=== PATIENT | female | born 1940 | race Caucasian/White ===

== ENCOUNTER 2017-01-01 14:55 | Inpatient (IN) ==
[2017-01-01] MEDS ORDERED: SODIUM CHLORIDE 0.9% 1,000 ML IV STA (15:28)
--- NOTE | 2017-01-01 16:03 | CT Report ---
CT head/brain wo con Indication: Head pain Comparison: None Technique: Multiple axial tomographic images of the brain were obtained without the use of intravenous contrast. Findings: Midline structures are nondisplaced. There is no evidence of acute intracranial hemorrhage or hydrocephalus. Mild global volume loss present. Mild periventricular and subcortical hypoattenuation noted which is nonspecific but consistent with chronic microvascular ischemic change. Right parietal scalp hematoma. The visualized paranasal sinuses and bilateral mastoid air cells are essentially clear. IMPRESSION: No acute intracranial abnormality demonstrated. The CT exam was performed using one or more of the following dose reduction techniques: Automated exposure control, adjustment of the mA and/or kV according to patient size, or use of iterative reconstruction technique. PROCEDURE INTERPRETED AT [facility] DEPARTMENT OF RADIOLOGY Final Report Signed by: Dr Dmitri Ventura
--- NOTE | 2017-01-01 16:18 | XRay Report ---
History: Shortness of breath Date: 01/01/2017 Study: Chest x-ray AP portable Comparison exam: August 21, 2016 There is cardiomegaly. The mediastinal contour is unchanged. The pulmonary vasculature is upper normal. There is some increased patchy and hazy opacity overlying the right mid lung and left lung base which was not present on the previous study. There are some strandy changes in the right lung base which were present on the previous exam and could be chronic. There is no pleural effusion. Osseous structures are unchanged. Impression: Bilateral infiltrate compatible with pneumonia, superimposed upon chronic changes in the right lung base. PROCEDURE INTERPRETED AT [facility] DEPARTMENT OF RADIOLOGY Final Report Signed by: Dr. Melodie Guerrero
[2017-01-01 16:29] LABS: Basophils # 0.1 10*3/uL (0.0-0.2); Basophils % 0.3 % (0.0-0.8); Eosinophils # 0.5 10*3/uL (0.0-0.87); Eosinophils % 2.7 % (0.00-10.9); Hematocrit 39.8 VOL% (35.7-47.0); Hemoglobin 13.1 GM/DL (12.0-16.0); Immature Granulocytes % 0.6 %; Lymphocytes # 1.8 10*3/uL (1.4-4.0); Lymphocytes % 10.2 % (21.3-54.2); Mean Corpuscular HGB Conc 32.9 GM/DL (32-36); Mean Corpuscular Hemoglobin 29 PG (27-34); Mean Corpuscular Volume 86.5 FL (87-102); Mean Platelet Volume 8.8 FL (9.6-12.0); Monocytes % 5.8 % (1.7-12.7); Neutrophils # 13.9 10*3/uL (1.4-7.4); Neutrophils % 80.4 % (38.7-73.9); Platelet Count 428 T/CUMM (130-400); Red Cell Distribution Width 13.7 % (9.3-17.3); White Blood Count 17.3 T/CUMM (4-12)
[2017-01-01 16:40] LABS: Apearance,Urine Slightly Hazy (Clear); Bacteria,Urine Occasional /HPF (Few); Bilirubin,Urine Negative (Negative); Blood, Urine Negative (Negative); Glucose,Urine (UA) Negative (Negative); Ketones,Urine Negative (Negative); Mucus,Urine Occasional /LPF (Occasional); Nitrite,Urine Negative (Negative); Protein,Urine Negative; RBC,Urine 2 /HPF (0-4); Squamous Epithelial Cell,Urine Occasional /HPF (0-10); Urine Color Yellow (Yellow); Urine Specific Gravity 1.014 (1.001-1.035); Urine Urobilinogen < 2.0 EU/DL (0.2-1.0); WBC,Urine 7 /HPF (0-6)
[2017-01-01] MEDS ORDERED: LEVOFLOXACIN INJ 500 MG in PREMIX 1 EACH IV STA (16:49)
[2017-01-01 17:09] LABS: Bilirubin,Total 0.6 MG/DL (0.2-1.0); Calcium 8.6 MG/DL (8.5-10.1); Osmolality,Calculated 277.4 MOS/KG (273-304); Potassium 3.3 MMOL/L (3.5-5.1)
[2017-01-01] MEDS ORDERED: LEVOFLOXACIN INJ 100 ML IV ONE (17:18)
--- NOTE | 2017-01-01 17:38 | Emergency Department Note ---
IBert Kasabria, am scribing for, and in the presence of, Angel Osborne MD 15:32. Dylon Lowe Phillip K, MD, personally performed the services described in this documentation, ascribed by Selwyn Noel in my presence, and it is both accurate and complete 738 . Arrival - Arrival Chief Complaint: Fall Stated Complaint: pt fell and hit head ED Nursing Triage Note: PT C/O FALLING AND HITTING HEAD ON TILE FLOOR AT APPROX 1430. PT AND BOTH DENY LOC. PT FELL FROM STANDING POSITION. + NAUSEA. Mode of Arrival: Wheelchair Limitations: No Limitations Source: Patient, Significant other ( ) Time Seen by Provider: 01/01/17 15:17 - History of Present Illness HPI Narrative: This is a 76 y/o white female presenting to the ED with c/o falling and hitting her head on the floor at approximately 1400. Pt's states the pt " blacked out". Pt fell from the standing position. She has had diarrhea for the past 2 weeks. Initially after the fall, the pt had a knot on her head that has gone down in circumference. Pt states she has a lung condition that she does not know the name of. She has been coughing up blood for most of the day along with yellow sputum. Pt attempted surgery to have part of her lung removed but states she coded on the table and was unable to complete the surgery done by Dr. Arcenio Castro. She is seen by Dr. Dubon. She denies fever, chills, nausea, vomiting, diarrhea, abdominal pain, back pain, neck and shoulder pain, and lower extremity pain. Her PHMx is consistent with HTN in which she takes Hydrochlorothiazide, bronchitis, and bladder tack. Consistency: constant Severity: moderate Allergies/Adverse Reactions: Allergies Allergy/AdvReac Type Severity Reaction Status Date / Time nitrofurantoin Allergy Severe Swelling Verified 01/01/17 15:09 [From Furadantin] of Lip/Tongue/Throat Sulfa (Sulfonamide Allergy Severe BLISTER Verified 01/01/17 15:09 Antibiotics) Home Medications: Home Medications Medication Instructions Recorded Confirmed Type hydroCHLOROthiazide 25 mg PO DAILY 08/19/16 08/20/16 History [Hydrochlorothiazide] Aspirin Chew Tab 81 mg PO DAILY tablet 08/23/16 Rx Atorvastatin [Lipitor] 40 mg PO DAILY tablet 08/23/16 Rx Clopidogrel [Plavix] 75 mg PO DAILY #60 tablet 08/23/16 Rx Loperamide Cap [Imodium Cap] 2 mg PO Q4H PRN #10 capsule 08/23/16 Rx Selenium [Selenium Tab] 200 mcg PO DAILY tablet 08/23/16 Rx Amoxicillin/Potassium Clav 1 tablet PO BID 01/01/17 History [Amox-Clav 875-125 mg Tablet] Carvedilol [Carvedilol] 6.25 mg PO BID 01/01/17 History Codeine Phosphate/Guaifenesin 5 - 10 ml PO BEDTIME 01/01/17 History [Guaifenesin-Codeine Syrup] predniSONE TAB [PredniSONE] See Taper PO DAILY 01/01/17 History Review of System - Review of System 12 point system: reviewed and no additional remarkable complaints except as stated - Review of System Constitutional: Absent: chills, fever, weakness Eyes: Absent: vision change Head/Ears/Nose/Throat: Present: other (headache with knot on occipital aspect of head ). Absent: nasal drainage Respiratory: Absent: cough Cardiovascular: Absent: chest pain, dyspnea on exertion Gastrointestinal: Absent: abdominal pain, nausea, vomiting, diarrhea Genitourinary female: Absent: dysuria Musculoskeletal: Absent: arm pain, back pain, leg pain, neck pain Skin: Absent: rash Neurological: Absent: headache, weakness, confusion, vertigo Psychiatric: Absent: anxiety Endocrine: Absent: fatigue Hematological/Lymphatic: Absent: easy bleeding Allergic/Immunologic: Absent: facial swelling Medical,Surgical,& Family Hx - Medical History Cardio: History of: Hypertension No history of: CAD, [place] Neurology: No history of: Seizures HEENT: History of: Eye Problem (CATARACT), Dental Problems (PARTIAL) Endocrine: No history of: Endocrine Cancer Respiratory: History of: Bronchitis (mycobacterium avium), Respiratory Problems Genitourinary: History of: Bladder Problem (BLADDER TACK) Comment Only: Genitourinary Cancer (INCONTIENCE) Gastrointestinal: History of: GI Problems (hiatal hernia) Musculoskeletal: History of: Musculoskeletal Problems No history of: Amputation Other: History of: Miscellaneous Medical Problems (night terrors at times) No history of: Anesthesia Reactions - Surgical History Thoracic Surgeries: Patient denies;: Organ Transplant, Lobectomy Neurologic Surgeries: Patient denies: Neurologic Surgery HEENT Surgeries: Surgical HX of: Eye Surgery (COS), Tonsilectomy & Adenoidectomy Abdominal Surgeries: Surgical HX of: Cholecystectomy, EGD Patient denies: Abdominal Surgery Reproductive Surgeries: Surgical HX of;: Hysterectomy - Family History Family History: Reports;: Family Cancer (breast(sisters2)), Family Diabetes (MOM ), Family Heart Disease (DAD), Family Hypertension (PARENTS BROTHER, sisters,) - Social History Smoking Status: Never smoker Frequency of Alcohol Use: None Type of Drug Use: None Exam Vital Signs: Vital Signs Temperature 97.6 F 01/01/17 15:16 Pulse Rate 62 01/01/17 15:36 Respiratory Rate 20 01/01/17 15:28 Blood Pressure 149/73 01/01/17 15:36 O2 Sat by Pulse Oximetry 97 01/01/17 15:28 - General General appearance: alert, in no apparent distress - Head Head exam: Present: normocephalic. Absent: atraumatic (2x2 cm hematoma to the temporal parietal aspect of head ), normal inspection - Eye Eye exam: Present: normal appearance, PERRL, EOMI - ENT ENT exam: Present: normal exam, normal oropharynx, mucous membranes moist, TM's normal bilaterally, normal external ear exam - Neck Neck exam: Present: normal inspection, full ROM, trachea midline. Absent: tenderness - Chest Chest inspection: Present: normal inspection, symmetric chest wall rise. Absent : tenderness - Respiratory Respiratory exam: Present: normal lung sounds bilaterally - Cardiovascular Cardiovascular exam: Present: regular rate, normal rhythm, normal heart sounds - Abdominal Exam Abdominal exam: Present: soft, normal bowel sounds. Absent: distention, tenderness - Extremities Exam Extremities exam: Present: normal inspection, full ROM, normal capillary refill. Absent: tenderness, pedal edema, calf tenderness - Back Exam Back exam: Present: normal inspection, full ROM. Absent: tenderness - Neurological Exam Neurological exam: Present: alert, oriented X3, CN II-XII intact, normal gait, reflexes normal. Absent: motor sensory deficit - Psychiatric Psychiatric exam: Present: normal affect, normal mood - Skin Skin exam: Present: warm, dry, intact, normal color. Absent: diaphoresis Results - Labs CBC & BMP: 01/01/17 16:21 Lab Results: I have reviewed the patients labs Labs: Laboratory Tests 01/01/17 01/01/1717 16:19 16:21 16:21 WBC 17.3 H RBC 4.60 Hgb 13.1 Hct 39.8 MCV 86.5 L MCH 29 MCHC 32.9 RDW 13.7 Plt Count 428 H MPV 8.8 L Neut % (Auto) 80.4 H Lymph % (Auto) 10.2 L [place] % (Auto) 5.8 Eos % (Auto) 2.7 Baso % (Auto) 0.3 Neut # (Auto) 13.9 H Lymph # (Auto) 1.8 [place] # (Auto) 1.0 H Eos # (Auto) 0.5 Baso # (Auto) 0.1 Immature Gran % 0.6 Nucleated RBC % 0.0 Immature Gran # 0.10 Nucleated RBCs # 0.00 Sodium 140 Potassium 3.3 L Chloride 99 Carbon Dioxide 32 Anion Gap 12.3 BUN 11 Creatinine 0.60 GFR Calculation 73 BUN/Creatinine Ratio 18.00 Glucose 105 Calculated Osmolality 277.4 Calcium 8.6 Total Bilirubin 0.60 AST 15 ALT 19 Alkaline Phosphatase 113 Total Protein 7.0 Albumin 3.0 L Globulin 4.0 H Albumin/Globulin Ratio 0.7 L Urine Color Yellow Urine Appearance Slightly hazy Urine pH 6.0 Ur Specific [place] 1.014 Urine Protein Negative Urine Glucose (UA) Negative Urine Ketones Negative Urine Blood Negative Urine Nitrate Negative Urine Bilirubin Negative Urine Urobilinogen < 2.0 H Urine Leukocytes Moderate H Urine RBC 2 Urine WBC 7 Ur Squamous Epith Cells Occasional Urine Bacteria Occasional Urine Mucus Occasional Ur Culture Indicated? Results to follow - Diagnostic Findings Procedure: Chest x-ray: report reviewed by me (Bilateral infiltrate compatible with pneumonia, superimposed upon chronic changes in the right lung base. ), CT : report reviewed by me (head; normal )
[2017-01-01] MEDS ORDERED: ONDANSETRON 4 MG/2 ML VIAL IV PRN (17:39)
[2017-01-01] MEDS: ACETAMINOPHEN 325 MG TABLET PO PRN (20:10)
[2017-01-01] MEDS: SODIUM CHLORIDE 0.9% 1,000 ML IV SCH (20:10)
[2017-01-01] MEDS: DOCUSATE SODIUM 100 MG CAPSULE PO SCH (20:12)
[2017-01-02] MEDS: SODIUM CHLORIDE 0.9% 1,000 ML IV SCH ×2 (03:15→12:56)
--- NOTE | 2017-01-02 07:06 | EKG Report ---
Stationary ECG Study [facility] ER Test Date: 01/01/2017 4:18:33 PM Pat Name: GOLDY CAREY Department: Room: 237 Gender: F Learning Support Aide: : 1940 Requested by: Angel Melchor Order Number: [id number] Reading MD: OLLIE SILVERMAN Intervals [place] Rate: 70 P: 45 NH: 149 QRS: 16 QRSD: 81 T: 38 QT: 391 QTc: 413 Interpretive Statements SINUS RHYTHM WITH MARKED SINUS ARRHYTHMIA LOW QRS VOLTAGE IN PRECORDIAL LEADS Electronically Signed On 01-02-17 21:50:13 CDT by OLLIE SILVERMAN [email or web address]
[2017-01-02] MEDS: DOCUSATE SODIUM 100 MG CAPSULE PO SCH ×2 (08:09→22:17)
[2017-01-02] MEDS: ACETAMINOPHEN 325 MG TABLET PO PRN ×2 (08:09→19:35)
--- NOTE | 2017-01-02 08:46 | Pulmonology Consult Note ---
Assessment and Plan (1) Syncope Status: Acute Assessment and plan: Being evaluated by primary service. Current Visit: Yes (2) Bronchiectasis with acute exacerbation Status: Acute Assessment and plan: It appears that she has an active infection. Likely to be a resistant 1. We will get sputum culture. Agree with Levaquin pending report. Patient is anxious to go home. If she goes would keep her on Levaquin by mouth. Current Visit: No (3) Status post insertion of drug eluting coronary artery stent Status: Acute Assessment and plan: Patient on Plavix. This may exacerbate the hemoptysis. Plan is for her to have the right middle lobectomy after she has been on Plavix for 6 months after the drug-eluting coronary stent. That would be in another month or so. Current Visit: No History of Present Illness Chief complaint: Syncope History of present illness: Ms. Hartmann is a 76 year old female has severe bronchiectasis involving right middle lobe. This is been evaluated by Dr. Dubon. It was recommended that she have a right middle lobectomy. Dr. Maxwell took her to surgery in August however the patient had cardiac events prior to having the surgery and had a coronary stent placed. Surgery was canceled. The plan is to do the surgery after 6 months of being on Plavix for the stent. That would be next month. The patient intermittently coughs up blood. She coughs some chronic purulent sputum due to her bronchiectasis. She had a flareup last week and was put on Augmentin on the 23 of December. Coughing up purulent sputum with blood streaking. Apparently has not been on cyclic antibiotics. She has a history of a previous atypical mycobacterial infection that was involving the right middle lobe. Home Medications Medication Instructions Recorded Confirmed Type hydroCHLOROthiazide 12.5 mg PO QAM 08/19/16 01/01/17 History [Hydrochlorothiazide] Aspirin Chew Tab 81 mg PO QAM 01/01/17 01/01/17 History Atorvastatin [Lipitor] 40 mg PO QAM 01/01/17 01/01/17 History Carvedilol [Carvedilol] 6.25 mg PO BID 01/01/17 01/01/17 History Clopidogrel [Plavix] 75 mg PO QAM 01/01/17 01/01/17 History Codeine Phosphate/Guaifenesin 5 - 10 ml PO BEDTIME 01/01/17 01/01/17 History [Guaifenesin-Codeine Syrup] Allergies Allergy/AdvReac Type Severity Reaction Status Date / Time nitrofurantoin Allergy Severe Swelling Verified 01/01/17 15:09 [From Furadantin] of Lip/Tongue/Throat Sulfa (Sulfonamide Allergy Severe BLISTER Verified 01/01/17 15:09 Antibiotics) 12 point system: reviewed and no additional remarkable complaints except as stated - Constitutional Constitutional: Present: fever(s), weight loss - Cardiovascular Cardiovascular: Present: chest pain with activity, dyspnea, dyspnea on exertion - Respiratory Respiratory: Present: dyspnea, hemoptysis, dyspnea on exertion, change in phlegm color - Neurological Neurological: Present: syncope Exam (Pulmonay) H&P - Constitutional Vitals: Period Temp Pulse Resp BP Sys/Morse Pulse Ox Last 24 Hr 97.4 F-99.4 F 56-73 18-28 82-162/47-80 91-98 Exam: Vital signs normal. Temperature 99.4. Pupils react to light. Throat clear. Neck supple no bruits. Chest shows rhonchi over the right middle lobe. Heart normal rate rhythm no murmurs. Abdomen soft no masses. Extremities no clubbing cyanosis edema. Calves nontender. Medical,Surgical,& Family Hx - Medical History Cardio: History of: Hypertension No history of: CAD, [place] Neurology: No history of: Seizures HEENT: History of: Eye Problem (CATARACT), Dental Problems (PARTIAL) Endocrine: No history of: Endocrine Cancer Respiratory: History of: Bronchitis (mycobacterium avium), Respiratory Problems Genitourinary: History of: Bladder Problem (BLADDER TACK) Comment Only: Genitourinary Cancer (INCONTIENCE) Gastrointestinal: History of: GI Problems (hiatal hernia) Musculoskeletal: History of: Musculoskeletal Problems No history of: Amputation Other: History of: Miscellaneous Medical Problems (night terrors at times) No history of: Anesthesia Reactions - Surgical History Thoracic Surgeries: Patient denies;: Organ Transplant, Lobectomy Neurologic Surgeries: Patient denies: Neurologic Surgery HEENT Surgeries: Surgical HX of: Eye Surgery (COS), Tonsilectomy & Adenoidectomy Abdominal Surgeries: Surgical HX of: Cholecystectomy, EGD Patient denies: Abdominal Surgery Reproductive Surgeries: Surgical HX of;: Hysterectomy - Family History Family History: Reports;: Family Cancer (breast(sisters2)), Family Diabetes (MOM ), Family Heart Disease (DAD), Family Hypertension (PARENTS BROTHER, sisters,) - Social History Smoking Status: Never smoker Frequency of Alcohol Use: None Type of Drug Use: None Results - Labs CBC & BMP: 01/01/17 16:21 01/01/17 16:21 Lab Results: I have reviewed the past 24 hour labs - Diagnostic Findings Procedure: Chest x-ray: image reviewed by me (Chronic right middle lobe infiltrate. Patchy infiltrate in the upper lobe on the right. Consistent with infected bronchiectasis with pneumonia)
[2017-01-02] MEDS ORDERED: hydroCHLOROthiazide 25 MG TABLET PO SCH (09:00)
--- NOTE | 2017-01-02 09:02 | Family Practice History&Phys ---
Assessment and Plan (1) Syncope Status: Acute Assessment and plan: 01/02/2017: Patient being evaluated by cardiology per consult. CT of the head was negative Current Visit: Yes (2) Bronchiectasis with acute exacerbation Status: Acute Assessment and plan: 01/02/2017:. Appreciate pulmonary consult on this difficult case. She is getting Levaquin antibiotic Current Visit: No (3) Hypokalemia Status: Acute Assessment and plan: 01/02/2017: We will supplement her potassium protocol Current Visit: No (4) Mycobacterium avium complex Status: Chronic Assessment and plan: 617:. She is getting antibiotics at this time and will get pulmonary to assist in direction with regards to this Current Visit: No History of Present Illness Chief complaint: Fall, bronchiectasis with hemoptysis History of present illness: Ms. Hartmann is a 76 year old female Known to me. She has a history of severe right lower lobe bronchiectasis and has had this for several years. It has gotten worse and was scheduled to have a right lower lobectomy this past August, as the patient was proceeding with surgery she went into sustained V. tach with a rate of 150s and the surgery was canceled. She subsequently was seen by cardiology and required a catheterization and it was noted that she had 90% right coronary artery lesion which was stented successfully. She is not having any chest pain since then and no episodes of V. tach. She has been on Plavix since that time. She came in yesterday to the emergency room after she sustained a fall, her stated that she "blacked out". She did hit her head but the CT of the head was negative. She does admit to recent diarrhea and is still coughing up a significant amount of yellowish/blood-tinged sputum (continuing this in the room now). She is very alert very oriented and otherwise is doing fairly well. She is not terribly short of breath and is not on oxygen at present. Her white count is up to 17.3 and she does have slightly low potassium. Is on Levaquin at present. I am going to get all pulmonary and cardiology consult. I am going to hold Plavix at this time and would ask for recommendations considering whether we need to continue this from cardiology or not Home Medications Medication Instructions Recorded Confirmed Type hydroCHLOROthiazide 12.5 mg PO QAM 08/19/16 01/01/17 History [Hydrochlorothiazide] Aspirin Chew Tab 81 mg PO QAM 01/01/17 01/01/17 History Atorvastatin [Lipitor] 40 mg PO QAM 01/01/17 01/01/17 History Carvedilol [Carvedilol] 6.25 mg PO BID 01/01/17 01/01/17 History Clopidogrel [Plavix] 75 mg PO QAM 01/01/17 01/01/17 History Codeine Phosphate/Guaifenesin 5 - 10 ml PO BEDTIME 01/01/17 01/01/17 History [Guaifenesin-Codeine Syrup] Allergies Allergy/AdvReac Type Severity Reaction Status Date / Time nitrofurantoin Allergy Severe Swelling Verified 01/01/17 15:09 [From Furadantin] of Lip/Tongue/Throat Sulfa (Sulfonamide Allergy Severe BLISTER Verified 01/01/17 15:09 Antibiotics) 12 point system: reviewed and no additional remarkable complaints except as stated (That mentioned above. In the history and physical exam as well as past medical history) Medical,Surgical,& Family Hx - Medical History Cardio: History of: Hypertension No history of: CAD, [place] Neurology: No history of: Seizures HEENT: History of: Eye Problem (CATARACT), Dental Problems (PARTIAL) Endocrine: No history of: Endocrine Cancer Respiratory: History of: Bronchitis (mycobacterium avium), Respiratory Problems Genitourinary: History of: Bladder Problem (BLADDER TACK) Comment Only: Genitourinary Cancer (INCONTIENCE) Gastrointestinal: History of: GI Problems (hiatal hernia) Musculoskeletal: History of: Musculoskeletal Problems No history of: Amputation Other: History of: Miscellaneous Medical Problems (night terrors at times) No history of: Anesthesia Reactions - Surgical History Thoracic Surgeries: Patient denies;: Organ Transplant, Lobectomy Neurologic Surgeries: Patient denies: Neurologic Surgery HEENT Surgeries: Surgical HX of: Eye Surgery (COS), Tonsilectomy & Adenoidectomy Abdominal Surgeries: Surgical HX of: Cholecystectomy, EGD Patient denies: Abdominal Surgery Reproductive Surgeries: Surgical HX of;: Hysterectomy - Family History Family History: Reports;: Family Cancer (breast(sisters2)), Family Diabetes (MOM ), Family Heart Disease (DAD), Family Hypertension (PARENTS BROTHER, sisters,) - Social History Smoking Status: Never smoker Frequency of Alcohol Use: None Type of Drug Use: None Exam - Constitutional Vitals: Period Temp Pulse Resp BP Sys/Morse Pulse Ox Last 24 Hr 97.4 F-99.4 F 56-73 18-28 82-162/47-80 91-98 Exam: Generally well-developed female she is alert and oriented. No acute distress but she does have a frequent and paroxysmal bronchospasms HEENT pupils are equal reactive to light extraocular movements are intact neck is supple trachea midline I do not appreciate cervical lymphadenopathy and there are no signs or symptoms of meningitis Cardiovascular rate is regular at this time no gallop or rub there is 1/6 systolic ejection murmur Lungs few basilar rhonchi particularly in the right. Not significantly short of breath at present Abdomen soft nondistended patient is eating reasonably well she admits she is having normal bowel and bladder function Extremities no clubbing cyanosis or edema Neurologically fully intact. No cranial nerve or peripheral nerve deficits Results - Labs CBC & BMP: 01/01/17 16:21 01/01/17 16:21
[2017-01-02] MEDS: CARVEDILOL 6.25 MG TABLET PO SCH ×2 (09:36→16:02)
[2017-01-02] MEDS: ASPIRIN CHEW 81 MG TABLET PO SCH (09:36)
[2017-01-02] MEDS: ATORVASTATIN 40 MG TABLET PO SCH (09:36)
[2017-01-02] MEDS: POTASSIUM CHLORIDE RIDER 10 MEQ in PREMIX 1 EACH IV PRN ×2 (09:38→12:57)
[2017-01-02 11:54] LABS: Calcium 7.7 MG/DL (8.5-10.1); Osmolality,Calculated 283.8 MOS/KG (273-304); Potassium 3.6 MMOL/L (3.5-5.1)
[2017-01-02] MEDS ORDERED: LEVOFLOXACIN INJ 750 MG in PREMIX 1 EACH IV SCH (14:00)
--- NOTE | 2017-01-02 14:00 | Cardiology Consult Note ---
I, Stacey Schaefer RN, am scribing for, and in the presence of, Osman Mishra MD 13:57. Assessment and Plan - Time spent with patient Time spent with patient: Greater than 30 minutes (Due to assessment, planning, documentation, medication review) (1) Bronchiectasis with acute exacerbation Status: Acute Assessment and plan: She is on antibiotics and steroids. Current Visit: No (2) Syncope Status: Acute Assessment and plan: The patient had a very brief loss/syncopal episode in the setting of pneumonia/ cough/hemoptysis. She did not have any symptoms of palpitations or other cardiac symptoms prior to the event. For now, I would manage her medically/ conservatively. We are monitoring her on telemetry. I would also like for her to get a 30 day event recorder when she is discharged home to make sure there is no transient cardiac arrhythmia. Current Visit: Yes (3) Cough with hemoptysis Status: Acute Assessment and plan: She has been on Plavix and baby aspirin since stent placed in August of this year. Plavix is currently on hold. I would like to resume it as soon as it is safe from a pulmonary standpoint. Current Visit: Yes (4) CAD (coronary artery disease) Status: Chronic Assessment and plan: Drug-eluting stent of the mid RCA August 2016. Patient has been on Plavix and baby aspirin since then. Current Visit: Yes Qualifiers: Coronary Disease-Associated Artery/Lesion type: [place] artery [place] vs. transplanted heart: [place] heart Associated angina: without angina Qualified Code(s): I25.10 - Atherosclerotic heart disease of [place] coronary artery without angina pectoris (5) Dyslipidemia Status: Chronic Assessment and plan: She is on Lipitor 40 mg daily. Current Visit: Yes (6) Hypokalemia Status: Acute Assessment and plan: She is on potassium protocol, we will continue to monitor. 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 Alvarez Ms. Hartmann is a 76 year old female who is followed by Dr. Alvarez with a history of ventricular tachycardia, CAD, dyslipidemia, hypertension, and bronchiectasis. In August she was admitted by Dr. Maxwell for elective right lung lobectomy related to her bronchiectasis. Upon induction of anesthesia, she was noted to have ventricular tachycardia and required synchronized cardioversion. She was seen by cardiology and had a heart cath with the following findings: Critical stenosis of the mid right coronary, large vessel-90% stenosis, focal, ANNABELLA grade III flow Mild to moderate disease in left coronary system Normal global/regional LV systolic function LVEDP is 10 mmHg, normal Aggrastat bolus and infusion-before the intervention Aspirin 81 mg [id number] the intervention Brilinta 180 mg p.o.-before the intervention Status post successful stenting of the mid right coronary [id number] stent, 3.0 x 12 mm Robert Tejada, after pre-dilating with a 2.75 x 8 mm NC trek Angio-Seal of the right femoral artery-successful She was placed on Plavix 75 mg daily as well as a baby aspirin daily. Because of antiplatelet therapy, she still has not had her lobectomy. An echo done in August showed ejection fraction of 70%. Other surgical history includes bladder sling, hysterectomy, cholecystectomy, and bilateral cataracts. She is unsure of her family history, but she does say that both parents and siblings have had heart attacks. She reports she is a lifetime non-smoker. Ms. Hartmann tells me that for 3 years she has had a terrible cough for the last week or so that is productive of thick yellow sputum which is sometimes blood- tinged. She says she was diagnosed with pneumonia a few days ago which was being treated as an outpatient. She was started on antibiotics and steroids by her manager services a few days ago. Yesterday however when she woke up she was even more tired than usual and generally felt bad. She reports that when she got out of bed and was walking to the kitchen she began to feel weak. She fell and may have briefly lost consciousness. She bumped her head on the floor. Her was there to assist her immediately. She denies any dizziness or any other symptoms before the syncopal episode other than just feeling bad. She did not have any palpitations, chest pain, or other symptoms associated with the spell. She tells me she had 1 of episode like this several months ago , but she did not come to the emergency department or see a doctor. Yesterday she presented to the emergency department for further evaluation. CT of her head was negative. Chest x-ray shows possible pneumonia. EKG with sinus rhythm heart rate of 70 with no evidence of ischemia. White count admission was 17.3. She denies having any chest pain. She reports having shortness of breath at times after a coughing spell. She reports having occasional nosebleeds, she is not sure if these began after she started Plavix. She thinks she had this even before. She denies any blood in her stool or urine. Currently she is seen resting in bed in no acute distress. She denies any chest pain, shortness of breath, palpitations, or dizziness. She is not coughing at this time, but she states she continues to cough up yellow sputum with blood in it. Her blood pressure was low on admission, 80s over 40s. She was given IV fluid and these numbers are better now. Potassium was 3.3, she was given potassium per protocol. Current Medications Acetaminophen (Tylenol Tab) 650 mg PO Q6H PRN PRN Reason: Fever > 100.4 or Headache Last Admin: 01/02/17 08:09 Dose: 650 mg Aspirin () 81 mg PO DAILY [facility] Last Admin: 01/02/17 09:36 Dose: 81 mg Atorvastatin Calcium (Lipitor) 40 mg PO DAILY [facility] Last Admin: 01/02/17 09:36 Dose: 40 mg Carvedilol (Coreg) 6.25 mg PO BID W/MEALS [facility] Last Admin: 01/02/17 09:36 Dose: 6.25 mg Docusate Sodium (Colace Cap) 100 mg PO BID [facility] Last Admin: 01/02/17 08:09 Dose: Not Given Hydrochlorothiazide () 12.5 mg PO DAILY [facility] Last Admin: 01/02/17 09:36 Dose: 12.5 mg Sodium Chloride (Ns) 1,000 mls @ 125 mls/hr IV .Q8H [facility] Last Admin: 01/02/17 03:15 Dose: 125 mls/hr Potassium Chloride 10 meq/ (Premix) 100 mls @ 50 mls/hr IV .PER PROTOCOL PRN; Protocol PRN Reason: Per Protocol Last Admin: 01/02/17 09:38 Dose: 50 mls/hr Ondansetron HCl (Zofran Inj) 4 mg IV Q6H PRN PRN Reason: Nausea/Vomiting CC: Jann Barragan DO - Home Medications and Allergies Home Medications: Home Medications Medication Instructions Recorded Confirmed Type hydroCHLOROthiazide 12.5 mg PO QAM 08/19/16 01/01/17 History [Hydrochlorothiazide] Aspirin Chew Tab 81 mg PO QAM 01/01/17 01/01/17 History Atorvastatin [Lipitor] 40 mg PO QAM 01/01/17 01/01/17 History Carvedilol [Carvedilol] 6.25 mg PO BID 01/01/17 01/01/17 History Clopidogrel [Plavix] 75 mg PO QAM 01/01/17 01/01/17 History Codeine Phosphate/Guaifenesin 5 - 10 ml PO BEDTIME 01/01/17 01/01/17 History [Guaifenesin-Codeine Syrup] Allergies/Adverse Reactions: Allergies Allergy/AdvReac Type Severity Reaction Status Date / Time nitrofurantoin Allergy Severe Swelling Verified 01/01/17 15:09 [From Furadantin] of Lip/Tongue/Throat Sulfa (Sulfonamide Allergy Severe BLISTER Verified 01/01/17 15:09 Antibiotics) - Constitutional Constitutional: Present: as per HPI - EENT Eyes: Present: blurry vision, requires corrective lense Ears: Absent: decreased hearing, ear pain Nose, mouth and throat: Present: epistaxis, headache(s). Absent: dysphagia, neck pain - Cardiovascular Cardiovascular: Present: dyspnea (Associated with cough). Absent: chest pain at rest, chest pain with activity, claudication, diaphoresis, edema, radiating jaw, neck or arm pain, lightheadedness, orthopnea, palpitations - Respiratory Respiratory: Present: cough, dyspnea (Associated with cough), hemoptysis. Absent: dyspnea on exertion, wheezing - Gastrointestinal Gastrointestinal: Present: vomiting (Associated with cough). Absent: abdominal pain, constipation, diarrhea, hematemesis, hematochezia, melena, nausea - Genitourinary Genitourinary: Absent: dysuria, hematuria - Musculoskeletal Musculoskeletal: Present: muscle weakness. Absent: limited range of motion - Neurological Neurological: Present: frequent falls, headache(s), syncope. Absent: abnormal gait, abnormal speech, confusion, dizziness - Psychiatric Psychiatric: Absent: anxiety, depression - Endocrine Endocrine: Present: fatigue - Hematologic/Lymphatic Hematologic/Lymphatic: Present: easy bruising Medical,Surgical,& Family Hx - Medical History Cardio: History of: CAD, Hypertension HEENT: History of: Eye Problem (CATARACT), Dental Problems (PARTIAL) Respiratory: History of: Bronchitis (mycobacterium avium), Respiratory Problems (Bronchiectasis) Genitourinary: History of: Bladder Problem (BLADDER TACK) Gastrointestinal: History of: GI Problems (hiatal hernia) Musculoskeletal: History of: Musculoskeletal Problems Other: History of: Miscellaneous Medical Problems (night terrors at times) - Surgical History Cardiac Surgeries: Sugical HX of: Cardiac Catheterization (August 2016) HEENT Surgeries: Surgical HX of: Eye Surgery (Bilateral cataract), Tonsilectomy & Adenoidectomy Abdominal Surgeries: Surgical HX of: Cholecystectomy, EGD Reproductive Surgeries: Surgical HX of;: Hysterectomy - Family History Family History: Reports;: Family Cancer (breast(sisters2)), Family Diabetes (MOM ), Family Heart Disease (DAD), Family Hypertension (PARENTS BROTHER, sisters,) - Social History Smoking Status: Never smoker Have you smoked in the last 12 months: No Frequency of Alcohol Use: Occasionally Type of Drug Use: None Marital Status: Lives With:: Spouse Functional capacity: independent ambulation Physical Examination Vital Signs Temp Pulse Resp BP Pulse Ox 97.6 F 56 L 18 82/47 95 01/01/17 15:06 01/01/17 15:06 01/01/17 15:06 01/01/17 15:06 01/01/17 15:06 General: Present: Appears Well, No Apparent Distress HEENT: Present: PERRL, Mucus Membranes Moist Neck: Present: Supple Neck, Midline Trachea, No Bruit Cardiac: Present: Reg Rate and Rhythm, No Murmur Lungs: Present: Scattered Rhonchi, No Wheezes. Absent: Oxygen Neuro: Absent: Resting Tremor, Essential Tremor Abdomen: Present: Soft, Active Bowel Sounds, Non-Tender Skin: Present: Other (Scattered chigger bites). Absent: Rash, Suspicious Lesions Gait: Present: Normal Gait Extremities: Present: Normal Gait, No Edema, Normal Upper Extr. Pulses, Normal Lower Extr. Pulses Result/EKG - Labs CBC & BMP: 01/01/17 16:21 01/02/17 11:07 Lab Results: I have reviewed the past 24 hour labs Labs: Laboratory Results - last 24 hr 01/01/17 01/01/17 01/01/17 16:19 16:21 16:21 WBC 17.3 H RBC 4.60 Hgb 13.1 Hct 39.8 MCV 86.5 L MCH 29 MCHC 32.9 RDW 13.7 Plt Count 428 H MPV 8.8 L Neut % (Auto) 80.4 H Lymph % (Auto) 10.2 L [place] % (Auto) 5.8 Eos % (Auto) 2.7 Baso % (Auto) 0.3 Neut # (Auto) 13.9 H Lymph # (Auto) 1.8 [place] # (Auto) 1.0 H Eos # (Auto) 0.5 Baso # (Auto) 0.1 Immature Gran % 0.6 Nucleated RBC % 0.0 Immature Gran # 0.10 Nucleated RBCs # 0.00 Sodium 140 Potassium 3.3 L Chloride 99 Carbon Dioxide 32 Anion Gap 12.3 BUN 11 Creatinine 0.60 GFR Calculation 73 BUN/Creatinine Ratio 18.00 Glucose 105 Calculated Osmolality 277.4 Calcium 8.6 Total Bilirubin 0.60 AST 15 ALT 19 Alkaline Phosphatase 113 Total Protein 7.0 Albumin 3.0 L Globulin 4.0 H Albumin/Globulin Ratio 0.7 L Urine Color Yellow Urine Appearance Slightly hazy Urine pH 6.0 Ur Specific [place] 1.014 Urine Protein Negative Urine Glucose (UA) Negative Urine Ketones Negative Urine Blood Negative Urine Nitrate Negative Urine Bilirubin Negative Urine Urobilinogen < 2.0 H Urine Leukocytes Moderate H Urine RBC 2 Urine WBC 7 Ur Squamous Epith Cells Occasional Urine Bacteria Occasional Urine Mucus Occasional Ur Culture Indicated? Results to follow - Diagnostic Findings Procedure: Chest x-ray: report reviewed by me, CT: report reviewed by me (Head) - EKG EKG results: interpreted by me EKG shows: sinus rhythm Tad Lowe Michael, MD, personally performed the services described in this documentation, ascribed by Stacey Schaefer RN in my presence, and it is both accurate and complete .
[2017-01-02] MEDS: POTASSIUM CHLORIDE 20 MEQ TABLET PO SCH (16:02)
[2017-01-03] MEDS: SODIUM CHLORIDE 0.9% 1,000 ML IV SCH ×2 (00:59→07:43)
--- NOTE | 2017-01-03 08:22 | Discharge Summary ---
Hospital Course - Hospital Course Hospital Course: Patient seen this morning. She is doing better but she does still have her chronic paroxysmal bronchospasms, secondary to her bronchiectasis, which seem to be worse in the morning.. We are continuing to wait for her to have the lobectomy secondary to the fact that she had been receiving Plavix as a result of recent cardiac stent. She "absolutely" does want to go home. We are going to discharge her today on Levaquin and keep her on her current medicines otherwise. She was seen by cardiology and requested that she have a heart monitor which were going to set up. I am going to restart her Plavix as well. Is in no acute distress and has been ambulatory in the room. In addition we will give her low-dose supplemental potassium. Appreciate specialty consults. Diagnosis - Discharge Diagnosis (1) Syncope Status: Acute (2) Bronchiectasis with acute exacerbation Status: Acute (3) Hypokalemia Status: Acute (4) Mycobacterium avium complex Status: Chronic Discharge Plan - Discharge Data Disposition: Disch To Home/Self Care Condition at Discharge: Stable Discharge Diet: heart healthy Activity: increase activity as tolerated Hygiene: no restrictions Weight Bearing at Discharge: weight bear as tolerated Driving: no restrictions Contact your physician if you experience:: fever over 101, Nausea/Vomiting, Shortness of breath, Bleeding - Discharge Medications New Levofloxacin Tab [Levaquin Tab] 500 mg PO DAILY #8 tablet Potassium Chloride Cap/Tab [K Dur] 10 meq PO DAILY #30 tablet Continue hydroCHLOROthiazide [Hydrochlorothiazide] 12.5 mg PO QAM Carvedilol 6.25 mg PO BID Codeine Phosphate/Guaifenesin [Guaifenesin-Codeine Syrup] 5 - 10 ml PO BEDTIME Aspirin Chew Tab 81 mg PO QAM Clopidogrel [Plavix] 75 mg PO QAM Atorvastatin [Lipitor] 40 mg PO QAM - Follow Up or Referral Follow Up: Alfie Alvarez MD [Physician] - 2 Weeks William Addison MD [Physician] - 2 Weeks Jann Barragan DO [Primary Care Provider] - 1 Month - Forms/Instructions Exam - Constitutional Vitals: Period Temp Pulse Resp BP Sys/Morse Pulse Ox Last 24 Hr 96.7 F-98.7 F 61-78 16-20 131-153/65-84 92-99 Discharge Results Procedures and tests throughout hospitalization: Pending Orders 01/01/17 Urine Culture Routine 01/01/17 17:14 Blood Culture Stat 01/02/17 Sputum Culture and Gram Stain Routine Labs on day of discharge: Labs from last 24 hours 01/02/17 11:07 Sodium 144 Potassium 3.6 Chloride 107 Carbon Dioxide 31 Anion Gap 9.6 BUN 5 L Creatinine 0.50 L GFR Calculation 78 BUN/Creatinine Ratio 10.00 Glucose 110 H Calculated Osmolality 283.8 Calcium 7.7 L Magnesium 2.0 Preliminary micro results at discharge 01/01/17 17:14 Blood Culture - Preliminary Blood No growth at 1 day 01/01/17 17:14 Blood Culture - Preliminary Blood No growth at 1 day 01/01/17 Unknown Urine Culture - Preliminary Urine,Voided No Growth at 24 hours. DS: Provider Date of admission: 01/02/17 13:57 Primary care physician: Jann Barragan DO Attending physician on admission: Jann Barragan DO Consults: 01/01/17 17:39 Consult to Case Mgmt/Social Srvs [CONS] Routine Reason for Case Mgmt/Social Srvs: Discharge Planning Consult to Physician [CONS] Routine Comment: Hemoptysis Consulting Provider: Thor Dubon Person Notified: rebeca Date Notified: 01/02/17 Time Notified: 09:23 01/02/17 08:53 Consult to Physician [CONS] Routine Comment: s/p rca stent on plavix with hemoptysis Consulting Provider: Cardiology - [facility] Person Notified: arya Date Notified: 01/02/17 Time Notified: 08:58 Discharging clinician: Jann Barragan DO
[2017-01-03] MEDS: POTASSIUM CHLORIDE 20 MEQ TABLET PO SCH (09:05)
[2017-01-03] MEDS: ASPIRIN CHEW 81 MG TABLET PO SCH (09:05)
[2017-01-03] MEDS: CARVEDILOL 6.25 MG TABLET PO SCH (09:05)
[2017-01-03] MEDS: ATORVASTATIN 40 MG TABLET PO SCH (09:05)
[2017-01-03] MEDS: DOCUSATE SODIUM 100 MG CAPSULE PO SCH (09:06)
[2017-01-03 09:08] VITALS: BP 151/69
--- NOTE | 2017-01-03 09:46 | Pulmonology Progress Note ---
Pulmonary - PN: Subj Interval history: This 76-year-old white female has right middle lobe bronchiectasis with destruction of the right middle lobe. Plans are for her to have a right middle lobectomy at some point in time. She had cardiac rhythm complications when she was going to have surgery back in August of this year so it was terminated. She is in now with an acute infected bronchiectasis with hemoptysis. She is on Plavix because of stents placed in her coronary artery in August of this year. I would not hold the Plavix unless cardiology recommends it. She is going to be discharged today. She can follow-up with Dr. Andrei Dubon who is her regular vice president regulatory. Exam (Progress Note) - Constitutional Vitals: Period Temp Pulse Resp BP Sys/Morse Pulse Ox Last 24 Hr 96.7 F-99.3 F 61-78 16-20 131-153/65-84 92-99 Exam: Patient's alert afebrile. Vital signs normal. Pupils react to light. Throat is clear. Neck supple no bruits. Chest shows coarse rhonchi over the right middle lobe otherwise lungs sound fairly clear. Heart normal rate rhythm no murmurs. abdomen soft nontender no masses. Extremities no clubbing cyanosis edema. Calves nontender. Results - Labs CBC & BMP: 01/01/17 16:21 01/02/17 11:07 Lab Results: I have reviewed the past 24 hour labs Assessment and Plan (1) Syncope Status: Acute Assessment and plan: Being evaluated by primary service. Current Visit: Yes (2) Bronchiectasis with acute exacerbation Status: Acute Assessment and plan: It appears that she has an active infection. Likely to be a resistant 1. We will get sputum culture. Agree with Levaquin pending report. Patient is anxious to go home. If she goes would keep her on Levaquin by mouth. 01-18 would keep her on Levaquin by mouth for a week post discharge. Check cultures when available. Current Visit: No (3) Status post insertion of drug eluting coronary artery stent Status: Acute Assessment and plan: Patient on Plavix. This may exacerbate the hemoptysis. Plan is for her to have the right middle lobectomy after she has been on Plavix for 6 months after the drug-eluting coronary stent. That would be in another month or so. 01/03/2017 defer to cardiology. Current Visit: No Specialty Discharge - Follow Up or Referrals Follow up with: William Addison MD [Physician] - 01/20/17 10:45 am Alfie Alvarez MD [Physician] - 01/21/17 9:10 am (30 DAY EVENT MONITOR) Jann Barragan DO [Primary Care Provider] - 02/06/17 1:00 pm
--- NOTE | 2017-01-03 10:12 | Physician Query Form ---
CLICK EDIT DOCUMENT TO SELECT QUERY ANSWER --> OK --> SIGN Shy Hardy RN, CCDS Certified Clinical Courtroom Reporter W) [phone] (f) [phone] [email or web address] PROVIDERS: Make your selection(s) from the choices in EACH section by typing an "x" and enter comments in the comment section. Please use your independent medical judgment in providing your response. This request does not imply that any particular answer is desired or expected. CLINICAL INDICATORS: (Providers should not edit this section) The below diagnosis was documented in the record, but is not consistently noted in subsequent documentation. "Chest x-ray: image reviewed by me (Chronic right middle lobe infiltrate. Patchy infiltrate in the upper lobe on the right. Consistent with infected bronchiectasis with pneumonia)" Diagnosis: PNEUMONIA Please clarify the following: ( ) The above diagnosis was monitored, evaluated, and/or treated and is a confirmed diagnosis ( ) The above diagnosis was ruled out ( ) The above diagnosis is still a likely, suspected, probable diagnosis ( ) Other, please specify: ( ) Clinically unable to determine COMMENTS: PLEASE ALSO DOCUMENT RESPONSE IN PROGRESS NOTES AND/OR DISCHARGE SUMMARY Use of terms such as suspected, likely, or probable (associated with a specific diagnosis that is being evaluated, monitored, or treated as if it exists) are acceptable and can be restated in the discharge summary if not ruled out. MTDD
--- NOTE | 2017-01-06 07:39 | Physician Query Form ---
CLICK EDIT DOCUMENT TO SELECT QUERY ANSWER --> OK --> SIGN Shy Hardy RN, CCDS Certified Clinical Grocery Sacker W) [phone] (f) [phone] [email or web address] PROVIDERS: Make your selection(s) from the choices in EACH section by typing an "x" and enter comments in the comment section. Please use your independent medical judgment in providing your response. This request does not imply that any particular answer is desired or expected. CLINICAL INDICATORS: (Providers should not edit this section) The below diagnosis was documented in the record, but is not consistently noted in subsequent documentation. Chest x-ray: image reviewed by me (Chronic right middle lobe infiltrate. Patchy infiltrate in the upper lobe on the right. Consistent with infected bronchiectasis with pneumonia) Diagnosis: PNEUMONIA Please clarify the following: (x ) The above diagnosis was monitored, evaluated, and/or treated and is a confirmed diagnosis ( ) The above diagnosis was ruled out ( ) The above diagnosis is still a likely, suspected, probable diagnosis ( ) Other, please specify: ( ) Clinically unable to determine COMMENTS: PLEASE ALSO DOCUMENT RESPONSE IN PROGRESS NOTES AND/OR DISCHARGE SUMMARY Use of terms such as suspected, likely, or probable (associated with a specific diagnosis that is being evaluated, monitored, or treated as if it exists) are acceptable and can be restated in the discharge summary if not ruled out. MTDD
--- NOTE | 2017-01-09 13:55 | Physician Query Form ---
CLICK EDIT DOCUMENT TO SELECT QUERY ANSWER --> OK --> SIGN Shy Hardy RN, CCDS Certified Clinical Sexual Assault Social Worker W) [phone] (f) [phone] [email or web address] PROVIDERS: Make your selection(s) from the choices in EACH section by typing an "x" and enter comments in the comment section. Please use your independent medical judgment in providing your response. This request does not imply that any particular answer is desired or expected. CLINICAL INDICATORS: (Providers should not edit this section) The patient was admitted with bronchiectasis, pneumonia, sputum is showing Light "Klebsiella Ozaenae" and the patient was treated with Antibiotics. Community Acquired and Healthcare Acquired are both unspecified terms and require further specificity. Based on the above, could you please clarify further specificity regarding the type of pneumonia you are treating (even if specific organism may not be known) ? ( ) Aspiration pneumonia ( ) Gram negative pneumonia ( ) Gram positive pneumonia (x ) Bacterial pneumonia due to, please specify organism (if known): " Klebsiella Ozaenae" ( ) Pneumonia with Influenza ( ) Viral pneumonia ( ) Post procedural ( ) HIV associated pneumonia ( ) Radiation Pneumonitis ( ) Pneumonia due to, please specify: ( ) Clinically unable to determine ( ) Other, please specify: COMMENTS: PLEASE ALSO DOCUMENT RESPONSE IN PROGRESS NOTES AND/OR DISCHARGE SUMMARY Use of terms such as suspected, likely, or probable (associated with a specific diagnosis that is being evaluated, monitored, or treated as if it exists) are acceptable and can be restated in the discharge summary if not ruled out. MTDD
== END 2017-01-03 09:50 | disposition home or self-care (01) | DRG 178 ==
LOC: N.ED 14:55 → N.EDINP 14:55 → N.2E 18:52
PROVIDERS: ADMIT Family Medicine; ATTEND Family Medicine

== ENCOUNTER 2017-03-06 07:45 | Inpatient (IN) ==
[2017-02-24 10:18] LABS: Basophils % 0.4 % (0.0-0.8); Eosinophils # 0.3 10*3/uL (0.0-0.87); Eosinophils % 4.3 % (0.00-10.9); Hematocrit 35.4 VOL% (35.7-47.0); Hemoglobin 11.6 GM/DL (12.0-16.0); Immature Granulocytes % 0.1 %; Immature Granulocytes Absolute 0.01 #; Lymphocytes # 1.6 10*3/uL (1.4-4.0); Lymphocytes % 20.8 % (21.3-54.2); Mean Corpuscular HGB Conc 32.8 GM/DL (32-36); Mean Corpuscular Hemoglobin 28 PG (27-34); Mean Corpuscular Volume 86.3 FL (87-102); Mean Platelet Volume 8.7 FL (9.6-12.0); Monocytes # 0.7 10*3/uL (0.11-0.8); Monocytes % 8.8 % (1.7-12.7); Neutrophils # 4.9 10*3/uL (1.4-7.4); Neutrophils % 65.6 % (38.7-73.9); Platelet Count 378 T/CUMM (130-400); Red Cell Distribution Width 14.9 % (9.3-17.3); White Blood Count 7.5 T/CUMM (4-12)
[2017-02-24 10:27] LABS: PT Patient Result 10.7 SECS; Partial Thromboplastin Time 26.8 SECS (0-40)
--- NOTE | 2017-02-24 10:39 | EKG Report ---
Stationary ECG Study [facility] Test Date: 02/24/2017 10:39:36 AM Pat Name: GOLDY CAREY Department: Room: Gender: F Hogshead Stripper: TRINA [birth year] JOEL : 1940 Requested by: Cameron Maxwell Order Number: [id number] Reading MD: HANY WESTFALL Intervals [place] Rate: 66 P: 9 VA: 138 QRS: -2 QRSD: 80 T: 16 QT: 396 QTc: 410 Interpretive Statements SINUS RHYTHM at 66 bpm LOW QRS VOLTAGE IN PRECORDIAL LEADS Electronically Signed On 02-24-17 16:05:22 CDT by HANY WESTFALL [email or web address]
--- NOTE | 2017-02-24 10:39 | XRay Report ---
XR chest 2V Indication: Respiratory preoperative evaluation Comparison: 01 Jan 2017 Findings: The heart and mediastinum are stable in size and configuration. The pulmonary vascularity is normal in caliber. Lung volumes are increased with prominent bronchial markings. Pulmonary interstitial densities and patchy alveolar densities are similar to previous study. No other lung infiltrates, effusions, pneumothorax or other abnormality is demonstrated. Impression: Chronic lung changes. No acute process or significant change. PROCEDURE INTERPRETED AT [facility] DEPARTMENT OF RADIOLOGY Final Report Signed by: Dr. Ilia Khan
[2017-02-24 10:48] LABS: Calcium 8.9 MG/DL (8.5-10.1); Magnesium 2.5 MG/DL (1.8-2.4); Osmolality,Calculated 274.7 MOS/KG (273-304); Potassium 4.2 MMOL/L (3.5-5.1)
[2017-03-07] MEDS ORDERED: HEPARIN/NACL 0.9% 2 UNITS/ML 500 ML IV ONE (06:00)
[2017-03-07] MEDS ORDERED: BUPIVACAINE LIPOSOMAL 20 ML/266 MG VIAL INFILTRAT ONE (06:00)
[2017-03-07] MEDS ORDERED: PIPERACILLIN/TAZOBACTAM 3,375 MG in SODIUM CHLORIDE 0.9% 100 ML IV ONE (06:00)
[2017-03-07] MEDS ORDERED: ACETAMINOPHEN INJ 1,000 MG in PREMIX 1 EACH IV ONE (06:00)
[2017-03-07] MEDS ORDERED: VANCOMYCIN INJ 1,000 MG in SODIUM CHLORIDE 0.9% 250 ML IV ONE (06:00)
[2017-03-07] MEDS ORDERED: BUPIVACAINE LIPOSOMAL 20 ML/266 MG VIAL ONE (06:21)
[2017-03-07] MEDS ORDERED: TISSUE ADHESIVE 1 EACH APPLICATOR TOP ONE (06:21)
[2017-03-07 06:35] LABS: Apearance,Urine Slightly Hazy (Clear); Bilirubin,Urine Negative (Negative); Blood, Urine Negative (Negative); Glucose,Urine (UA) Negative (Negative); Ketones,Urine Negative (Negative); Mucus,Urine Occasional /LPF (Occasional); Nitrite,Urine Negative (Negative); Protein,Urine Negative; RBC,Urine 1 /HPF (0-4); Squamous Epithelial Cell,Urine Occasional /HPF (0-10); Urine Color Yellow (Yellow); Urine Specific Gravity 1.019 (1.001-1.035); Urine Urobilinogen < 2.0 EU/DL (0.2-1.0); WBC,Urine 10 /HPF (0-6)
--- NOTE | 2017-03-07 06:57 | History and Physical Update ---
History and Physical Update - History and Physical H&P was reviewed, the patient examined and there: are no changes in the patients condition since last H&P was completed. - Dictation Physical: refer to scanned H&P
[2017-03-07] MEDS ORDERED: VANCOMYCIN 1,000 MG VIAL ONE (07:02)
[2017-03-07] MEDS ORDERED: LACTATED RINGERS 1,000 ML IV SCH (07:30)
[2017-03-07 08:00] LABS: Amorphous Crystals,Urine Occasional /HPF (Few); Apearance,Urine CLOUDY (Clear); Bilirubin,Urine Negative (Negative); Blood, Urine Negative (Negative); Glucose,Urine (UA) Negative (Negative); Ketones,Urine Negative (Negative); Mucus,Urine Occasional /LPF (Occasional); Nitrite,Urine Negative (Negative); Protein,Urine Negative; Urine Color Yellow (Yellow); Urine Specific Gravity 1.016 (1.001-1.035); Urine Urobilinogen < 2.0 EU/DL (0.2-1.0)
[2017-03-07] MEDS ORDERED: ONDANSETRON 4 MG/2 ML VIAL IV PRN ×2 (12:12→12:39)
[2017-03-07] MEDS ORDERED: KETOROLAC 15 MG/1 ML VIAL IV SCH (12:30)
--- NOTE | 2017-03-07 12:33 | CT Report ---
CT brain Indication: Cerebrovascular occlusion Comparison: 01 Jan 2017 Technique: Axial CT imaging of the brain is performed without contrast with 3 mm increments. Findings: No evidence of hemorrhage, mass mass effect midline shift or acute infarct seen. There is mild diffuse cerebral atrophy. Otherwise the brain parenchyma attenuation and differentiation appears within normal limits. The ventricles and cisterns are normal in caliber. No cranial or skull base abnormality is identified. Impression: No evidence of acute process or interval change. This CT exam was performed using one or more the following dose reduction techniques: Automated exposure control, adjustment of the MA and/or KV according to patient size, or use of iterative reconstruction technique. PROCEDURE INTERPRETED AT [facility] DEPARTMENT OF RADIOLOGY Final Report Signed by: Dr. Ilia Khan
[2017-03-07] MEDS ORDERED: HYDROmorphone 2 MG/1 ML VIAL ONE (12:39)
[2017-03-07] MEDS: HYDROmorphone 2 MG/1 ML VIAL IV PRN ×2 (12:40→12:50)
--- NOTE | 2017-03-07 12:45 | XRay Report ---
XR chest 1V portable Indication: Chest tube evaluation Comparison: 01 March 2017 Findings: The heart and mediastinum are similar in size and configuration. 2 chest tubes have been placed in the right hemithorax, appear within normal limits. The pulmonary vascularity is normal in caliber. There is increased right midlung density. No other pulmonary infiltrates, effusions, pneumothorax or other abnormality is demonstrated. Impression: Chest tubes appear within normal limits. Increased right midlung density, may represent atelectasis. PROCEDURE INTERPRETED AT [facility] DEPARTMENT OF RADIOLOGY Final Report Signed by: Dr. Ilia Khan
[2017-03-07] MEDS ORDERED: SEVOFLURANE 1 UNIT/15 MINUTE INH ONE (13:00)
[2017-03-07] MEDS ORDERED: DESFLURANE 1 UNIT/15 MINUTE INH ONE (13:00)
[2017-03-07] MEDS ORDERED: PROPOFOL 200 MG/20 ML VIAL IV ONE (13:00)
[2017-03-07] MEDS ORDERED: ACETAMINOPHEN 1,000 MG/100 ML VIAL IV ONE (13:01)
[2017-03-07] MEDS ORDERED: LACTATED RINGERS 1,000 ML IV ONE (13:01)
[2017-03-07] MEDS ORDERED: ROCURONIUM 100 MG/10 ML VIAL IV ONE (13:01)
[2017-03-07] MEDS ORDERED: fentaNYL 100 MCG/2 ML VIAL ONE (13:01)
[2017-03-07] MEDS ORDERED: SODIUM CHLORIDE 0.9% 250 ML IV ONE (13:01)
[2017-03-07] MEDS ORDERED: MIDAZOLAM 2 MG/2 ML VIAL ONE (13:01)
[2017-03-07] MEDS ORDERED: DEXAMETHASONE 10 MG/1 ML VIAL ONE (13:01)
[2017-03-07] MEDS ORDERED: PHENYLEPHRINE 50 MG/5 ML VIAL ONE (13:01)
[2017-03-07] MEDS ORDERED: ETOMIDATE 20 MG/10 ML VIAL IV ONE (13:01)
[2017-03-07] MEDS ORDERED: NEOSTIGMINE 10 MG/10 ML VIAL ONE (13:01)
[2017-03-07] MEDS ORDERED: GLYCOPYRROLATE 0.4 MG/2 ML VIAL ONE (13:01)
[2017-03-07 13:04] LABS: Basophils # 0.1 10*3/uL (0.0-0.2); Basophils % 0.3 % (0.0-0.8); Eosinophils % 0.2 % (0.00-10.9); Hematocrit 31.7 VOL% (35.7-47.0); Hemoglobin 10.4 GM/DL (12.0-16.0); Immature Granulocytes % 0.4 %; Immature Granulocytes Absolute 0.07 #; Lymphocytes # 1.1 10*3/uL (1.4-4.0); Lymphocytes % 6.3 % (21.3-54.2); Mean Corpuscular HGB Conc 32.8 GM/DL (32-36); Mean Corpuscular Hemoglobin 29 PG (27-34); Mean Corpuscular Volume 88.3 FL (87-102); Mean Platelet Volume 9.4 FL (9.6-12.0); Monocytes # 0.2 10*3/uL (0.11-0.8); Monocytes % 1.2 % (1.7-12.7); Neutrophils # 16.2 10*3/uL (1.4-7.4); Neutrophils % 91.6 % (38.7-73.9); Platelet Count 351 T/CUMM (130-400); Red Blood Count 3.59 MC/CUMM (3.8-5.5); Red Cell Distribution Width 16.4 % (9.3-17.3); White Blood Count 17.6 T/CUMM (4-12)
[2017-03-07 13:36] LABS: Calcium 8.1 MG/DL (8.5-10.1); Osmolality,Calculated 284.3 MOS/KG (273-304); Potassium 3.7 MMOL/L (3.5-5.1)
[2017-03-07] MEDS: KETOROLAC 15 MG/1 ML VIAL IV SCH ×2 (13:56→20:29)
[2017-03-07] MEDS: SODIUM CHLORIDE 0.45% 1,000 ML IV SCH ×2 (13:56→23:18)
--- NOTE | 2017-03-07 13:56 | Operative Note ---
Date of procedure: 03/07/17 Pre-op diagnosis: Bronchiectasis of the right middle lobe Post-op diagnosis: same Procedure: 1. Right muscle-sparing posterolateral thoracotomy 2. Bronchoscopy and bronchoalveolar lavage 3. [place] of right fifth intercostal muscle flap 4. Partial resection of the sixth rib 5. Extensive adhesiolysis 6. Right middle lobectomy with muscle flap for closure of the bronchial stump 7. Phrenic nerve neurolysis 8. Mediastinal lymph node dissection Findings: Thick yellow secretions were found on bronchoscopy that was washed out and sent for microbiology. Extensive adhesions were found in the right chest. Right middle lobe was contracted and thickened inflamed. Very enlarged lymph nodes noted. Details of the procedure: The patient was brought into the OR placed supine on the OR table and general endotracheal anesthesia was induced with a single-lumen tube. Antibiotics were given. Timeout was performed. I then introduced my bronchoscopy and extensive lavage was carried out with retrieval of very thick secretions. Cultures were sent. After that the ET tube was switched to a double-lumen tube. The patient was turned left lateral decubitus right side up. The chest was prepped and draped in the usual sterile fashion. An incision was made 1 cm below the tip of the scapula. An incision was carried down to the prefascial plane of the latissimus. Latissimus muscle flap was raised from the serratus anterior. The ribs were counted and I started raising the periosteum off the sixth rib as well as the fifth rib. An intercostal muscle flap was created successfully. The anterior end was tied down. After entering the chest extensive adhesions were noted. These adhesions were taken down with electrocautery until the entire lung was cleared and mobile. I then turned my attention to taking down the inferior pulmonary ligament. The posterior hilum was exposed. I collected level 11 as well as level 7 lymph nodes. I then completed the minor fissure with purple load. I then completed the major fissure with purple load. I then identified the interlobar pulmonary artery. The middle lobe arterial branches were taken down using vascular stapler. There were 2 of them. I then turned my attention to the anterior hilum. Middle lobe vein was noted. It was severely adhesed posteriorly. Slow meticulous dissection was carried out and I was able to encircle the middle lobe vein preserving the upper lobe and the lower lobe veins. I was a white staple load to resect the middle lobe vein. I then turned my attention to the bronchus. I used I reinforced staple to resect and transect the bronchus. After that the right middle lobe was handed down. I then placed the muscle flap on top of the bronchial stump and fixated in place with Vicryl stitch. I irrigated the chest thoroughly without any problems and hemostasis was achieved. At this point I tested for bronchial stump leak and there was no any bubbles. I placed to chest tubes on anterior and posterior. Lung inflated successfully without any problems. The ribs were approximated using Ethibond stitches. The latissimus was then reapproximated. Fascia was closed using running PDS. Skin was closed using Monocryl. All counts were correct at the end of the procedure. Patient recovered well from anesthesia. She was transferred to PACU in good condition. Anesthesia: ASHLEY Surgeon / Physician: Cameron Maxwell Estimated blood loss: other (50) Specimens: other (Right middle lobe, level 7, level 11 lymph nodes.) Condition: stable Disposition: PACU Results - Labs CBC & BMP: 03/07/17 12:50 03/07/17 12:50 Discharge Plan - Discharge Medications No Action hydroCHLOROthiazide [Hydrochlorothiazide] 12.5 mg PO QAM Carvedilol 6.25 mg PO BID Aspirin Chew Tab 81 mg PO QAM Clopidogrel [Plavix] 75 mg PO QAM Atorvastatin [Lipitor] 40 mg PO QAM - Follow Up or Referral - Forms/Instructions
[2017-03-07] MEDS: VANCOMYCIN INJ 750 MG in SODIUM CHLORIDE 0.9% 250 ML IV SCH (14:19)
[2017-03-07] MEDS ORDERED: traMADol 50 MG TABLET PO PRN (14:32)
[2017-03-07] MEDS: PIPERACILLIN/TAZOBACTAM 3,375 MG in SODIUM CHLORIDE 0.9% 100 ML IV SCH ×2 (15:35→23:19)
[2017-03-07] MEDS: GABAPENTIN 100 MG CAPSULE PO SCH ×2 (15:36→20:24)
[2017-03-07 16:29] LABS: Band Neutrophils 3 % (0-10); Lymphocytes 7 % (20-55); Platelet Estimate Normal; Segmented Neutrophils 89 % (50-85); Total Cells Counted 100
[2017-03-07] MEDS ORDERED: ACETAMINOPHEN 500 MG TABLET PO SCH (18:00)
[2017-03-07] MEDS: ACETAMINOPHEN INJ 1,000 MG in PREMIX 1 EACH IV SCH ×2 (18:20→23:25)
[2017-03-07] MEDS ORDERED: CEFUROXIME INJ 1,500 MG in SODIUM CHLORIDE 0.9% 100 ML IV SCH (20:12)
[2017-03-07] MEDS: CELECOXIB 200 MG CAPSULE PO SCH (20:25)
[2017-03-08] MEDS: VANCOMYCIN INJ 750 MG in SODIUM CHLORIDE 0.9% 250 ML IV SCH ×2 (02:45→15:03)
[2017-03-08] MEDS: KETOROLAC 15 MG/1 ML VIAL IV SCH ×4 (02:47→20:04)
[2017-03-08 05:06] LABS: Basophils % 0.1 % (0.0-0.8); Hemoglobin 8.9 GM/DL (12.0-16.0); Immature Granulocytes % 0.5 %; Immature Granulocytes Absolute 0.09 #; Mean Corpuscular Hemoglobin 29 PG (27-34); Mean Corpuscular Volume 87.9 FL (87-102); Mean Platelet Volume 9.7 FL (9.6-12.0); Monocytes # 0.5 10*3/uL (0.11-0.8); Monocytes % 2.7 % (1.7-12.7); Neutrophils # 15.2 10*3/uL (1.4-7.4); Neutrophils % 90.7 % (38.7-73.9); Platelet Count 316 T/CUMM (130-400); Red Blood Count 3.07 MC/CUMM (3.8-5.5); Red Cell Distribution Width 16.3 % (9.3-17.3); White Blood Count 16.8 T/CUMM (4-12)
[2017-03-08 05:18] LABS: Calcium 7.7 MG/DL (8.5-10.1); Osmolality,Calculated 284.1 MOS/KG (273-304); Potassium 3.7 MMOL/L (3.5-5.1)
[2017-03-08 06:10] LABS: Anisocytosis 1+; Band Neutrophils 2 % (0-10); Lymphocytes 7 % (20-55); Segmented Neutrophils 89 % (50-85); Total Cells Counted 100
[2017-03-08] MEDS: ENOXAPARIN 40 MG/0.4 ML SYRINGE SUBCUT SCH (06:10)
[2017-03-08 06:11] LABS: Ovalocytes Few; Platelet Estimate Normal
[2017-03-08] MEDS: ACETAMINOPHEN 500 MG TABLET PO SCH ×3 (06:12→22:54)
[2017-03-08] MEDS: PIPERACILLIN/TAZOBACTAM 3,375 MG in SODIUM CHLORIDE 0.9% 100 ML IV SCH ×3 (06:14→23:30)
[2017-03-08] MEDS: SODIUM CHLORIDE 0.45% 1,000 ML IV SCH ×2 (06:19→08:49)
[2017-03-08] MEDS: GABAPENTIN 100 MG CAPSULE PO SCH ×3 (08:48→20:04)
[2017-03-08] MEDS: CELECOXIB 200 MG CAPSULE PO SCH ×2 (08:48→20:04)
[2017-03-08] MEDS: PANTOPRAZOLE 40 MG VIAL IV SCH (08:48)
--- NOTE | 2017-03-08 10:13 | XRay Report ---
History: Postop thoracic surgery Date: 03/08/2017 Study: Chest x-ray 2 views Comparison exam: 03/07/2017 There are 2 chest tubes in the right hemithorax, generally stable in position. There is an equivocal tiny right apical pneumothorax measuring less than 5%. There is no new or worsening infiltrate. There is some bandlike atelectasis and postsurgical change in the right midlung as before. There is strandy subsegmental atelectasis in the left lung base. There is no significant pleural effusion. The cardiomediastinal silhouette is stable. The pulmonary vasculature is not engorged. The osseous structures are unchanged. There is mild soft tissue emphysema of the right chest wall. Impression: Equivocal tiny right apical pneumothorax. The chest tubes are in stable satisfactory positioning. Stable exam otherwise PROCEDURE INTERPRETED AT [facility] DEPARTMENT OF RADIOLOGY Final Report Signed by: Dr. Melodie Guerrero
--- NOTE | 2017-03-08 10:23 | Cardiothoracic Progress Note ---
Assessment and Plan - Time spent with patient Time spent with patient: Greater than 30 minutes (1) Bronchiectasis with acute exacerbation Status: Acute Assessment and plan: POD1 S/P right middle lobectomy, muscle flap and mediastinal LN disscetion. Did very well overnight, no complaints, pain is well controlled. Tx to tele, DC A line, central line, adv diet, ambulate, start home meds. Current Visit: No Exam (Progress Note) - Constitutional Vitals: Period Temp Pulse Resp BP Sys/Morse Pulse Ox Last 24 Hr 97.0 F-97.7 F 52-76 12-23 87-123/36-61 94-100 Result/EKG - Labs CBC & BMP: 03/08/17 04:25 03/08/17 04:25 Labs: Laboratory Results - last 24 hr 03/07/17 03/07/17 03/07/17 06:19 12:50 12:50 WBC 17.6 H RBC 3.59 L Hgb 10.4 L Hct 31.7 L MCV 88.3 MCH 29 MCHC 32.8 RDW 16.4 Plt Count 351 MPV 9.4 L Neut % (Auto) 91.6 H Lymph % (Auto) 6.3 L [place] % (Auto) 1.2 L Eos % (Auto) 0.2 Baso % (Auto) 0.3 Neut # (Auto) 16.2 H Lymph # (Auto) 1.1 L [place] # (Auto) 0.2 Eos # (Auto) 0.0 Baso # (Auto) 0.1 Total Counted 100 Immature Gran % 0.4 Nucleated RBC % 0.0 Immature Gran # 0.07 Segmented Neutrophils 89 H Band Neutrophils 3 Lymphocytes 7 L Monocytes 1 L Nucleated RBCs # 0.00 Platelet Estimate Normal Immature Plt Fraction 0.0 Anisocytosis Ovalocytes Sodium 141 Potassium 3.7 Chloride 107 Carbon Dioxide 28 Anion Gap 9.7 BUN 18 Creatinine 0.50 L GFR Calculation 76 BUN/Creatinine Ratio 36.00 H Glucose 136 H Calculated Osmolality 284.3 Calcium 8.1 L Crossmatch See Detail 03/08/17 03/08/17 04:25 04:25 WBC 16.8 H RBC 3.07 L Hgb 8.9 L Hct 27.0 L MCV 87.9 MCH 29 MCHC 33.0 RDW 16.3 Plt Count 316 MPV 9.7 Neut % (Auto) 90.7 H Lymph % (Auto) 6.0 L [place] % (Auto) 2.7 Eos % (Auto) 0.0 Baso % (Auto) 0.1 Neut # (Auto) 15.2 H Lymph # (Auto) 1.0 L [place] # (Auto) 0.5 Eos # (Auto) 0.0 Baso # (Auto) 0.0 Total Counted 100 Immature Gran % 0.5 Nucleated RBC % 0.0 Immature Gran # 0.09 Segmented Neutrophils 89 H Band Neutrophils 2 Lymphocytes 7 L Monocytes 2 Nucleated RBCs # 0.00 Platelet Estimate Normal Immature Plt Fraction 0.0 Anisocytosis 1+ Ovalocytes Few Sodium 142 Potassium 3.7 Chloride 109 H Carbon Dioxide 28 Anion Gap 8.7 BUN 14 Creatinine 0.50 L GFR Calculation 79 BUN/Creatinine Ratio 28.00 H Glucose 115 H Calculated Osmolality 284.1 Calcium 7.7 L Crossmatch
[2017-03-08] MEDS ORDERED: traMADol 50 MG TABLET PO PRN (12:00)
[2017-03-08] MEDS: hydroCHLOROthiazide 25 MG TABLET PO SCH (13:22)
[2017-03-08] MEDS: ATORVASTATIN 40 MG TABLET PO SCH (13:23)
[2017-03-08] MEDS: ASPIRIN CHEW 81 MG TABLET PO SCH (13:24)
[2017-03-08] MEDS: CARVEDILOL 6.25 MG TABLET PO SCH ×2 (13:24→20:04)
[2017-03-09] MEDS: ACETAMINOPHEN 500 MG TABLET PO SCH ×5 (01:03→23:39)
[2017-03-09] MEDS: KETOROLAC 15 MG/1 ML VIAL IV SCH ×2 (03:12→09:12)
[2017-03-09] MEDS: VANCOMYCIN INJ 750 MG in SODIUM CHLORIDE 0.9% 250 ML IV SCH ×2 (03:29→15:18)
[2017-03-09 05:40] LABS: Basophils % 0.2 % (0.0-0.8); Eosinophils # 0.1 10*3/uL (0.0-0.87); Hematocrit 27.3 VOL% (35.7-47.0); Hemoglobin 8.8 GM/DL (12.0-16.0); Immature Granulocytes % 0.6 %; Immature Granulocytes Absolute 0.07 #; Lymphocytes # 1.4 10*3/uL (1.4-4.0); Mean Corpuscular HGB Conc 32.2 GM/DL (32-36); Mean Corpuscular Hemoglobin 28 PG (27-34); Mean Corpuscular Volume 88.1 FL (87-102); Mean Platelet Volume 9.9 FL (9.6-12.0); Monocytes # 0.3 10*3/uL (0.11-0.8); Monocytes % 2.7 % (1.7-12.7); Neutrophils # 9.6 10*3/uL (1.4-7.4); Neutrophils % 83.5 % (38.7-73.9); Platelet Count 295 T/CUMM (130-400); Red Cell Distribution Width 16.9 % (9.3-17.3); White Blood Count 11.5 T/CUMM (4-12)
[2017-03-09 06:10] LABS: Calcium 7.8 MG/DL (8.5-10.1); Osmolality,Calculated 285.8 MOS/KG (273-304); Potassium 3.4 MMOL/L (3.5-5.1)
[2017-03-09] MEDS: ENOXAPARIN 40 MG/0.4 ML SYRINGE SUBCUT SCH (06:11)
[2017-03-09] MEDS: PIPERACILLIN/TAZOBACTAM 3,375 MG in SODIUM CHLORIDE 0.9% 100 ML IV SCH ×3 (06:11→23:39)
[2017-03-09] MEDS: ATORVASTATIN 40 MG TABLET PO SCH (09:13)
[2017-03-09] MEDS: PANTOPRAZOLE 40 MG VIAL IV SCH (09:13)
[2017-03-09] MEDS: ASPIRIN CHEW 81 MG TABLET PO SCH (09:13)
[2017-03-09] MEDS: CELECOXIB 200 MG CAPSULE PO SCH ×2 (09:14→20:41)
[2017-03-09] MEDS: GABAPENTIN 100 MG CAPSULE PO SCH ×3 (09:14→20:40)
[2017-03-09] MEDS: hydroCHLOROthiazide 25 MG TABLET PO SCH (09:14)
[2017-03-09] MEDS: CARVEDILOL 6.25 MG TABLET PO SCH ×2 (09:14→20:41)
[2017-03-09] MEDS ORDERED: FUROSEMIDE 40 MG/4 ML VIAL IV ONE (11:01)
--- NOTE | 2017-03-09 11:19 | Cardiothoracic Progress Note ---
Assessment and Plan (1) Bronchiectasis with acute exacerbation Status: Acute Assessment and plan: POD2 S/P right middle lobectomy, muscle flap and mediastinal LN disscetion. Did very well overnight, no complaints, pain is well controlled. DC chest tubes follow-up chest x-ray in 2 hours restart inhaler. Give 40 IV Lasix once. Likely discharge home tomorrow. Current Visit: No Exam (Progress Note) - Constitutional Vitals: Period Temp Pulse Resp BP Sys/Morse Pulse Ox Last 24 Hr 97.8 F-98.5 F 66-77 18-20 104-142/56-74 90-96 Result/EKG - Labs CBC & BMP: 03/09/17 05:22 03/09/17 05:22 Labs: Laboratory Results - last 24 hr 03/07/17 03/09/17 03/09/17 06:19 05:22 05:22 WBC 11.5 D RBC 3.10 L Hgb 8.8 L Hct 27.3 L MCV 88.1 MCH 28 MCHC 32.2 RDW 16.9 Plt Count 295 MPV 9.9 Neut % (Auto) 83.5 H Lymph % (Auto) 12.0 L [place] % (Auto) 2.7 Eos % (Auto) 1.0 Baso % (Auto) 0.2 Neut # (Auto) 9.6 H Lymph # (Auto) 1.4 [place] # (Auto) 0.3 Eos # (Auto) 0.1 Baso # (Auto) 0.0 Immature Gran % 0.6 Nucleated RBC % 0.0 Immature Gran # 0.07 Nucleated RBCs # 0.00 Immature Plt Fraction 0.0 Sodium 144 Potassium 3.4 L Chloride 109 H Carbon Dioxide 28 Anion Gap 10.4 BUN 13 Creatinine 0.40 L GFR Calculation 86 BUN/Creatinine Ratio 32.00 H Glucose 96 Calculated Osmolality 285.8 Calcium 7.8 L Crossmatch See Detail
[2017-03-09] MEDS: ALBUTEROL/IPRATROPIUM 3 ML NEB RESP TX SCH ×4 (11:24→23:42)
--- NOTE | 2017-03-09 12:27 | XRay Report ---
History: Postop thoracic surgery Date: 03/09/2017 Study: Chest x-ray PA and lateral Comparison exam: 03/08/2017 There are 2 chest tubes in the right hemithorax, unchanged in position. There is again an equivocal tiny right apical pneumothorax, though this is stable. There is continued platelike atelectasis and postsurgical change in the right mid to lower lung, stable. There is continued mild strandy atelectatic change in the left lung base. There is no significant layering pleural effusion. The cardiomediastinal silhouette is unchanged. There is some continued soft tissue emphysema of the right chest wall. Impression: Stable equivocal tiny right apical pneumothorax. Stable positioning of the chest tubes. Interval removal of the right IJ central line. Overall no adverse interval changes PROCEDURE INTERPRETED AT [facility] DEPARTMENT OF RADIOLOGY Final Report Signed by: Dr. Melodie Guerrero
--- NOTE | 2017-03-09 12:47 | XRay Report ---
History: Postop right middle lobectomy Date: 03/09/2017 at 12:26 PM Study: Chest x-ray PA and lateral Comparison exam: 03/09/2017 at 7:13 AM There has been interval removal of the 2 chest tubes from the right hemithorax. There is a tiny right apical pneumothorax measuring less than 5%. The exam is otherwise unchanged with continued atelectatic change in both lung bases and postsurgical change in the right midlung. Impression: Tiny right apical pneumothorax following chest tube removal, though this is likely grossly similar to the earlier study. No significant changes otherwise PROCEDURE INTERPRETED AT [facility] DEPARTMENT OF RADIOLOGY Final Report Signed by: Dr. Melodie Guerrero
[2017-03-10] MEDS: VANCOMYCIN INJ 750 MG in SODIUM CHLORIDE 0.9% 250 ML IV SCH (03:12)
[2017-03-10] MEDS: ALBUTEROL/IPRATROPIUM 3 ML NEB RESP TX SCH ×2 (03:31→07:06)
[2017-03-10 05:03] LABS: Basophils % 0.2 % (0.0-0.8); Eosinophils # 0.3 10*3/uL (0.0-0.87); Eosinophils % 2.5 % (0.00-10.9); Hematocrit 26.4 VOL% (35.7-47.0); Hemoglobin 8.7 GM/DL (12.0-16.0); Immature Granulocytes % 0.6 %; Immature Granulocytes Absolute 0.06 #; Lymphocytes # 1.5 10*3/uL (1.4-4.0); Lymphocytes % 13.7 % (21.3-54.2); Mean Corpuscular Hemoglobin 29 PG (27-34); Mean Corpuscular Volume 87.1 FL (87-102); Mean Platelet Volume 9.9 FL (9.6-12.0); Monocytes # 0.3 10*3/uL (0.11-0.8); Monocytes % 2.9 % (1.7-12.7); Neutrophils # 8.7 10*3/uL (1.4-7.4); Neutrophils % 80.1 % (38.7-73.9); Platelet Count 333 T/CUMM (130-400); Red Blood Count 3.03 MC/CUMM (3.8-5.5); Red Cell Distribution Width 16.7 % (9.3-17.3); White Blood Count 10.9 T/CUMM (4-12)
[2017-03-10 05:49] LABS: Calcium 7.6 MG/DL (8.5-10.1); Osmolality,Calculated 282.1 MOS/KG (273-304); Potassium 3.1 MMOL/L (3.5-5.1)
[2017-03-10] MEDS: ACETAMINOPHEN 500 MG TABLET PO SCH ×2 (06:20→13:12)
[2017-03-10] MEDS: ENOXAPARIN 40 MG/0.4 ML SYRINGE SUBCUT SCH (06:21)
[2017-03-10] MEDS: PIPERACILLIN/TAZOBACTAM 3,375 MG in SODIUM CHLORIDE 0.9% 100 ML IV SCH (06:21)
--- NOTE | 2017-03-10 08:12 | XRay Report ---
2 view chest. Indication: Status post thoracic surgery. Comparison: March 09, 2017. Persistent very minimal right apical pneumothorax, possibly further decreased. The heart is normal in size. Interstitial prominence at the left base is stable. Pleural and parenchymal abnormality involving the right lung is stable. Subcutaneous emphysema shows improvement. Impression: Minimal right apical pneumothorax, possibly decreased. Pleural and parenchymal findings bilaterally are stable. PROCEDURE INTERPRETED AT [facility] DEPARTMENT OF RADIOLOGY Final Report Signed by: Dr. Edith Urena
[2017-03-10] MEDS ORDERED: POTASSIUM CHLORIDE 20 MEQ TABLET PO ONE (08:28)
[2017-03-10] MEDS: PANTOPRAZOLE 40 MG VIAL IV SCH (08:51)
[2017-03-10] MEDS: hydroCHLOROthiazide 25 MG TABLET PO SCH (08:52)
[2017-03-10] MEDS: CARVEDILOL 6.25 MG TABLET PO SCH (08:52)
[2017-03-10] MEDS: CELECOXIB 200 MG CAPSULE PO SCH (08:53)
[2017-03-10] MEDS: GABAPENTIN 100 MG CAPSULE PO SCH (08:53)
[2017-03-10] MEDS: ATORVASTATIN 40 MG TABLET PO SCH (08:53)
[2017-03-10] MEDS: ASPIRIN CHEW 81 MG TABLET PO SCH (08:53)
[2017-03-10] MEDS ORDERED: CELECOXIB 200 MG CAPSULE PO SCH (09:00)
--- NOTE | 2017-03-10 09:38 | Discharge Summary ---
Hospital Course - Hospital Course Hospital Course: The patient was seen and evaluated in preop area and was noted to be fit for surgery. The patient was taken to the OR and the surgical procedure was performed without any problems. Details of the procedure are dictated a separate note. The patient was then admitted to the ICU for close observation. She did very well without any problems. Her pain was well-controlled without any issues. I kept her on IV antibiotics as a new she had chronic positive sputum culture. Postoperative day 1 the patient continued to progress. She had no air leak. Output was clear. Postoperative day 2 I removed the chest tubes and chest x-ray looks good. Cough significantly improved. Postoperative day 3 the patient was ready for discharge. I consulted infectious disease to place her on p.o. antibiotics for her chronic sputum positive culture as well as urine positive culture. - Time spent with patient Time with patient DS: Greater than 30 minutes Diagnosis - Discharge Diagnosis (1) Bronchiectasis with acute exacerbation Status: Acute Specialty Discharge - Follow Up or Referrals Follow up with: Cameron Maxwell [Physician] - Alfie Alvarez MD [Physician] - Thor Dubon MD [Physician] - Discharge Plan - Discharge Data Disposition: Disch To Home/Self Care Condition at Discharge: Stable Discharge Diet: advance to your usual diet Activity: resume usual activities as tolerated Hygiene: no restrictions Weight Bearing at Discharge: full weight bearing Driving: no restrictions Contact your physician if you experience:: fever over 101, Difficulty voiding, Redness or swelling, Nausea/Vomiting, Shortness of breath, Bleeding - Discharge Medications New RX: Acetaminophen Tab [Tylenol Tab] 1,000 mg PO Q6H #60 tablet RX: traMADol TAB [Ultram] 50 mg PO Q6H PRN #60 tablet PRN Reason: Pain Mild (1-3) RX: Celecoxib [Celebrex] 200 mg PO BID #60 capsule RX: Gabapentin Cap/Tab [Neurontin Cap/Tab] 100 mg PO TID #60 capsule RX: HYDROcodone/ACETAMIN 5-325 [[place] 5-325] 1 tablet PO Q4H PRN tablet PRN Reason: Pain Moderate (4-7) Continue RX: hydroCHLOROthiazide [Hydrochlorothiazide] 12.5 mg PO QAM RX: Carvedilol 6.25 mg PO BID RX: Aspirin Chew Tab 81 mg PO QAM RX: Clopidogrel [Plavix] 75 mg PO QAM RX: Atorvastatin [Lipitor] 40 mg PO QAM - Follow Up or Referral - Forms/Instructions Exam - Constitutional Vitals: Period Temp Pulse Resp BP Sys/Morse Pulse Ox Last 24 Hr 97.2 F-98.6 F 67-80 16-20 98-136/51-67 93-100 Discharge Results Procedures and tests throughout hospitalization: Pending Orders 03/07/17 06:19 Fresh Frozen Plasma Routine Red Blood Cells Leuko Red Routine Single Donor Platelets Routine Type and Screen Routine 03/07/17 07:53 AFB Culture/Smears Routine Fungal Culture w/ Prep Routine Labs on day of discharge: Labs from last 24 hours 03/10/17 03/10/17 04:02 04:01 WBC 10.9 RBC 3.03 L Hgb 8.7 L Hct 26.4 L MCV 87.1 MCH 29 MCHC 33.0 RDW 16.7 Plt Count 333 MPV 9.9 Neut % (Auto) 80.1 H Lymph % (Auto) 13.7 L [place] % (Auto) 2.9 Eos % (Auto) 2.5 Baso % (Auto) 0.2 Neut # (Auto) 8.7 H Lymph # (Auto) 1.5 [place] # (Auto) 0.3 Eos # (Auto) 0.3 Baso # (Auto) 0.0 Immature Gran % 0.6 Nucleated RBC % 0.0 Immature Gran # 0.06 Nucleated RBCs # 0.00 Immature Plt Fraction 0.0 Sodium 142 Potassium 3.1 L Chloride 103 Carbon Dioxide 32 Anion Gap 10.1 BUN 16 Creatinine 0.50 L GFR Calculation 79 BUN/Creatinine Ratio 32.00 H Glucose 86 Calculated Osmolality 282.1 Calcium 7.6 L Preliminary micro results at discharge 03/07/17 07:53 Direct Acid Fast Bacilli Smear - Preliminary Sputum No acid fast bacilli seen DS: Provider Date of admission: 03/07/17 05:13 Primary care physician: Jann Barragan DO Attending physician on admission: Cameron Maxwell Consults: 03/08/17 08:12 Consult to Dietitian [CONS] Routine Reason for Dietitian: Dietary Consult Consult Comment: poor appetite 03/09/17 14:18 Consult to Physician [CONS] Routine Comment: Chronic pneumonia, UTI Consulting Provider: Samanta Hamilton Consulting Provider Notified: No When should Consulting Provider be notified: Now Consult to Specialist Group: Infectious Disease When should Consulting Provider be notified: In am Person Notified: Elizabeth Date Notified: 03/10/17 Time Notified: 08:40 Discharging clinician: Cameron Maxwell Expected date of discharge: 03/10/17
--- NOTE | 2017-03-10 11:49 | Infectious Disease Consult ---
Assessment and Plan (1) Bronchiectasis with acute exacerbation Status: Acute Assessment and plan: Bronchiectasis with chronic Pseudomonas infection. Patient status post partial pneumonectomy on the right. Recommendations: Levofloxacin 500 mg daily 10 days. Thank you very much for the consult. Discussed with Dr. Maxwell. History of Present Illness Chief complaint: Chronic Pseudomonas pulmonary infection History of present illness: Ms. Hartmann is a 77 year old female with bronchiectasis who was admitted electively for partial pneumonectomy on the right. Her sputum cultures have been persistently positive for Pseudomonas including when she was admitted last week. She is due to go home today and asked advice oral antibiotic therapy. Patient has not had any fever recently; her surgery last week was uneventful. She does have some right chest related to her surgery other than that no major complaints. Home Medications Medication Instructions Recorded Confirmed Type hydroCHLOROthiazide 12.5 mg PO QAM 08/19/16 03/07/17 History [Hydrochlorothiazide] Aspirin Chew Tab 81 mg PO QAM 01/01/17 03/07/17 History Atorvastatin [Lipitor] 40 mg PO QAM 01/01/17 03/07/17 History Carvedilol 6.25 mg PO BID 01/01/17 03/07/17 History Clopidogrel [Plavix] 75 mg PO QAM 01/01/17 03/07/17 History Acetaminophen Tab [Tylenol Tab] 1,000 mg PO Q6H #60 tablet 03/10/17 Rx Celecoxib [Celebrex] 200 mg PO BID #60 capsule 03/10/17 Rx Gabapentin Cap/Tab [Neurontin 100 mg PO TID #60 capsule 03/10/17 Rx Cap/Tab] HYDROcodone/ACETAMIN 5-325 [[place] 1 tablet PO Q4H PRN tablet 03/10/17 Rx 5-325] traMADol TAB [Ultram] 50 mg PO Q6H PRN #60 tablet 03/10/17 Rx Allergies Allergy/AdvReac Type Severity Reaction Status Date / Time nitrofurantoin Allergy Severe Swelling Verified 03/01/17 19:15 [From Furadantin] of Lip/Tongue/Throat Sulfa (Sulfonamide Allergy Severe BLISTER Verified 03/01/17 19:15 Antibiotics) 12 point system: reviewed and no additional remarkable complaints except as stated (Per HPI) Medical,Surgical,& Family Hx - Medical History Cardio: History of: CAD, Hypertension, Cardiovascular Problems (DR PANDEY. STRESS TEST 02/2017.) No history of: IN Neurology: No history of: Seizures HEENT: History of: Eye Problem (CATARACT), Dental Problems (PARTIAL LOWER) Endocrine: No history of: Endocrine Cancer Respiratory: History of: Bronchitis (mycobacterium avium), Respiratory Problems (Bronchiectasis DR PENNINGTON.) Genitourinary: History of: Bladder Problem (BLADDER TACK) Comment Only: Genitourinary Cancer (INCONTIENCE) Gastrointestinal: History of: GI Problems (hiatal hernia) Musculoskeletal: History of: Musculoskeletal Problems No history of: Amputation Other: History of: Miscellaneous Medical Problems (night terrors at times) No history of: Anesthesia Reactions - Surgical History Cardiac Surgeries: Sugical HX of: Cardiac Catheterization (August 2016; 1 STENT.) Thoracic Surgeries: Patient denies;: Organ Transplant, Lobectomy Neurologic Surgeries: Patient denies: Neurologic Surgery HEENT Surgeries: Surgical HX of: Eye Surgery (Bilateral cataract), Tonsilectomy & Adenoidectomy Abdominal Surgeries: Surgical HX of: Cholecystectomy, Colonoscopy, EGD Patient denies: Abdominal Surgery Reproductive Surgeries: Surgical HX of;: Hysterectomy - Family History Family History: Reports;: Family Cancer (breast(sisters2)), Family Diabetes (MOM ), Family Heart Disease (DAD), Family Hypertension (PARENTS BROTHER, sisters,) - Social History Smoking Status: Never smoker Frequency of Alcohol Use: Occasionally Type of Drug Use: None Infectious Disease Exam H&P - Constitutional Vitals: Vital Signs Temp Pulse Resp BP Pulse Ox 97.4 F L 80 20 105/55 97 03/10/17 08:00 03/10/17 08:00 03/10/17 11:00 03/10/17 08:00 03/10/17 08:00 Intake and Output 03/09/17 03/10/17 03/10/17 23:59 07:59 15:59 Intake Total 1070 / 1070 300 / 300 Output Total 400 / 400 600 / 600 Balance 670 / 670 -300 / -300 Intake: IV 350 / 350 100 / 100 Zosyn 3,375 mg In Ns 100 100 / 100 100 / 100 ml @ 25 mls/hr IV Q8H JIMBO Rx#:[id number] Vancomycin Inj 1,000 mg 250 / 250 In Ns 250 ml @ 250 mls/hr IV Q12H JIMBO Rx#: [id number] Oral 720 / 720 200 / 200 Output: Urine 400 / 400 600 / 600 Other: Voiding Method Toilet # Voids 4 Weight 49.442 kg Exam: General: Patient comfortable, sitting in chair HEENT: Mucous membranes pink and moist, anicteric acyanotic, ELANA, no oropharyngeal exudates Neck: Supple, no thyroid gland enlargement Respiratory system: Breath sounds vesicular, no crepitations or wheezes Cardiovascular: Normal S1 and S2, no murmurs appreciated Abdomen: Normal bowel sounds, soft nontender throughout, no organomegaly or mass Genitourinary: No suprapubic pain or bladder distention Extremities: no edema Skin: No rash Reports - Labs CBC & BMP: 03/10/17 04:01 03/10/17 04:02 Labs: Laboratory Results - last 24 hr 03/10/17 03/10/17 04:01 04:02 WBC 10.9 RBC 3.03 L Hgb 8.7 L Hct 26.4 L MCV 87.1 MCH 29 MCHC 33.0 RDW 16.7 Plt Count 333 MPV 9.9 Neut % (Auto) 80.1 H Lymph % (Auto) 13.7 L [place] % (Auto) 2.9 Eos % (Auto) 2.5 Baso % (Auto) 0.2 Neut # (Auto) 8.7 H Lymph # (Auto) 1.5 [place] # (Auto) 0.3 Eos # (Auto) 0.3 Baso # (Auto) 0.0 Immature Gran % 0.6 Nucleated RBC % 0.0 Immature Gran # 0.06 Nucleated RBCs # 0.00 Immature Plt Fraction 0.0 Sodium 142 Potassium 3.1 L Chloride 103 Carbon Dioxide 32 Anion Gap 10.1 BUN 16 Creatinine 0.50 L GFR Calculation 79 BUN/Creatinine Ratio 32.00 H Glucose 86 Calculated Osmolality 282.1 Calcium 7.6 L - Reports Microbiology: Microbiology 03/07/17 Unknown Urine Culture - Final Urine,Clean Catch Morganella morganii 03/07/17 07:53 Fungal Smear - Final Sputum No fungal elements seen 03/07/17 07:53 Direct Acid Fast Bacilli Smear - Preliminary Sputum No acid fast bacilli seen 03/07/17 07:53 Sputum Culture - Final Sputum Pseudomonas aeruginosa Gram Stain - Final 03/07/17 Unknown MRSA Surveillance Culture - Final Nasal Passage No MRSA isolated. - Diagnostic Findings Procedure: Chest x-ray: image reviewed by me, report reviewed by me Specialty Discharge - Follow Up or Referrals Follow up with: Cameron Maxwell [Physician] - Thor Pennington MD [Physician] - 03/19/17 10:30 am Alfie Alvarez MD [Physician] - 03/13/17 12:40 pm
--- NOTE | 2017-03-10 12:21 | Pathology Report from [facility] ---
[facility] [place] : [id number] PATIENT NAME : Goldy Carey ORDERING DR : Cameron Maxwell MD CLINICAL HX: Right lung bronchiectasis POST-OP DX: Same SPECIMEN INFO: #1 Piece of 6th rib #2 11 R lymph #3 7 lymph node #4 Right middle lobe GROSS DESCRIPTION: #1 Received in formalin labeled with the patients name GOLDY CAREY and #1 consists of a rib segment measuring 1.2 x 1.6 x 0.8 cm. Gross only.#2 Received in formalin labeled with the patients name GOLDY CAREY and #2 consists of a gonzalez-white lymph node measuring 1.0 x 0.6 cm. Sectioned and submitted in cassette #2.#3 Received in formalin labeled with the patients name GOLDY CAREY and #3 consists of a 2.6 x 1.5 cm gonzalez-black lymph node. Sectioned and submitted in cassette #3.#4 Received in formalin labeled with the patients name GOLDY CAREY and #4 and consists of a portion of lung tissue measuring 8.0 x 5.0 x 1.3 cm. The pleural surface is shaggy and red-gonzalez. Sectioning reveals markedly dilated bronchioles with no discrete masses grossly appreciated. Nutrition Coordinator sections submitted in cassettes 4A and 4B. DIAGNOSIS FOR GOLDY CAREY: #1 Piece of 6th rib, gross only.#2 11 R LYMPH NODE: Reactive lymphoid hyperplasia.#3 7 LYMPH NODE: Reactive lymphoid hyperplasia.#4 RIGHT MIDDLE LOBE OF LUNG: Bronchiectasis with marked acute and chronic inflammation. No granulomas or malignancy seen. COLLECTED DATE: 03/07/2017 [facility] REPORT DATE: 03/10/2017 ELECTRONICALLY SIGNED BY: Kelley Brooke M.D. 03/10/2017 - 10:33:46 [facility] CENTER[facility]ia
[2017-03-10 12:40] VITALS: BP 113/62
--- NOTE | 2017-03-10 16:50 | Anesthesia Post-Op ---
Anesthesia Post OP - Post Ansesthetic Evaluation Patient seen in post op: Yes Resp: within normal limits CV: within normal limits Mental: within normal limits Temp: within normal limits [id number]: within normal limits Nausea and Vomiting: within normal limits Pain: within normal limits
== END 2017-03-10 13:16 | disposition home or self-care (01) | DRG 165 ==
LOC: N.SDSINP 03-07 05:13 → N.ICU 03-07 13:26 → N.TELES 03-08 11:36
PROVIDERS: ADMIT Thoracic Surgery (Cardiothoracic Vascular Surgery); ATTEND Thoracic Surgery (Cardiothoracic Vascular Surgery)

== ENCOUNTER 2018-11-21 07:40 | Inpatient (IN) ==
[2018-11-21] MEDS ORDERED: HYDROmorphone 2 MG/1 ML VIAL IV STA (08:05)
[2018-11-21] MEDS ORDERED: ONDANSETRON 4 MG/2 ML VIAL IV STA (08:05)
[2018-11-21 08:29] LABS: Basophils % 0.5 % (0.0-0.8); Eosinophils # 0.1 10*3/uL (0.0-0.87); Eosinophils % 1.3 % (0.00-10.9); Hematocrit 39.1 VOL% (35.7-47.0); Hemoglobin 12.3 GM/DL (12.0-16.0); Immature Granulocytes % 0.4 %; Immature Granulocytes Absolute 0.03 #; Mean Corpuscular HGB Conc 31.5 GM/DL (32-36); Mean Corpuscular Hemoglobin 28 PG (27-34); Mean Corpuscular Volume 89.9 FL (87-102); Mean Platelet Volume 9.8 FL (9.6-12.0); Monocytes # 0.5 10*3/uL (0.11-0.8); Neutrophils # 4.9 10*3/uL (1.4-7.4); Neutrophils % 64.8 % (38.7-73.9); Platelet Count 266 T/CUMM (130-400); Red Blood Count 4.35 MC/CUMM (3.8-5.5); Red Cell Distribution Width 13.7 % (9.3-17.3); White Blood Count 7.5 T/CUMM (4-12)
[2018-11-21 08:54] LABS: Albumin 3.6 G/DL (3.4-5.0); Bilirubin,Total 0.7 MG/DL (0.2-1.0); Calcium 8.4 MG/DL (8.5-10.1); Osmolality,Calculated 280.4 MOS/KG (273-304); Potassium 3.6 MMOL/L (3.5-5.1); Total Protein 7.4 G/DL (6.4-8.3)
[2018-11-21 10:48] LABS: Apearance,Urine CLEAR (Clear); Bacteria,Urine Occasional /HPF (Few); Bilirubin,Urine Negative (Negative); Blood, Urine Negative (Negative); Glucose,Urine (UA) Negative (Negative); Ketones,Urine Negative (Negative); Mucus,Urine Occasional /LPF (Occasional); Nitrite,Urine Negative (Negative); Protein,Urine Negative; RBC,Urine 3 /HPF (0-4); Squamous Epithelial Cell,Urine Occasional /HPF (0-10); Urine Color Yellow (Yellow); Urine Specific Gravity > 1.060 (1.001-1.035); Urine Urobilinogen < 2.0 EU/DL (0.2-1.0); WBC,Urine 1 /HPF (0-6)
[2018-11-21] MEDS ORDERED: HYDROmorphone 2 MG/1 ML VIAL IV PRN (10:58)
[2018-11-21] MEDS ORDERED: ONDANSETRON 4 MG/2 ML VIAL IV PRN (10:58)
[2018-11-21] MEDS ORDERED: ACETAMINOPHEN 325 MG TABLET PO PRN (10:58)
[2018-11-21] MEDS: ENOXAPARIN 40 MG/0.4 ML SYRINGE SUBCUT SCH (13:33)
[2018-11-21] MEDS: SODIUM CHLORIDE 0.9% 1,000 ML IV SCH ×2 (13:54→22:07)
[2018-11-21] MEDS: DOCUSATE SODIUM 100 MG CAPSULE PO SCH (22:07)
[2018-11-22] MEDS: POTASSIUM CHLORIDE 20 MEQ TABLET PO SCH (09:02)
[2018-11-22] MEDS: ATORVASTATIN 40 MG TABLET PO SCH (09:02)
[2018-11-22] MEDS: PANTOPRAZOLE 40 MG TABLET PO SCH (09:02)
[2018-11-22] MEDS: METOPROLOL SUCCINATE XL 25 MG TABLET PO SCH (09:03)
[2018-11-22] MEDS: DOCUSATE SODIUM 100 MG CAPSULE PO SCH ×2 (09:03→20:45)
[2018-11-22] MEDS: ASPIRIN EC 81 MG TABLET PO SCH (09:03)
[2018-11-22] MEDS: ENOXAPARIN 40 MG/0.4 ML SYRINGE SUBCUT SCH (10:05)
[2018-11-22 11:05] LABS: Albumin 3.1 G/DL (3.4-5.0); Bilirubin,Total 0.8 MG/DL (0.2-1.0); Calcium 7.5 MG/DL (8.5-10.1); Potassium 3.9 MMOL/L (3.5-5.1); Total Protein 6.7 G/DL (6.4-8.3)
[2018-11-22] MEDS: SODIUM CHLORIDE 0.9% 1,000 ML IV SCH (14:33)
[2018-11-22 15:12] LABS: % Iron Saturation 21.3 % (18-50)
[2018-11-22 16:06] LABS: Hepatitis A Ab IgM Quant 0.38 Index; Hepatitis A Ab IgM Result Negative (Negative); Hepatitis B Core IgM Quant 0.17 Index; Hepatitis B Core IgM Result Negative (Negative); Hepatitis B Surface Ag Quant < 0.10 Index; Hepatitis B Surface Ag Result Negative (Negative); Hepatitis C Virus Ab Quant 0.28 Index; Hepatitis C Virus Ab Result Negative (Negative)
[2018-11-23] MEDS ORDERED: PROPOFOL 200 MG/20 ML VIAL IV ONE (09:00)
[2018-11-23] MEDS ORDERED: LIDOCAINE 2% 5 ML VIAL ONE (09:00)
[2018-11-23] MEDS: SODIUM CHLORIDE 0.9% 1,000 ML IV SCH ×2 (09:37→18:13)
[2018-11-23] MEDS: METOPROLOL SUCCINATE XL 25 MG TABLET PO SCH (15:07)
[2018-11-23] MEDS: ATORVASTATIN 40 MG TABLET PO SCH (15:07)
[2018-11-23] MEDS: DOCUSATE SODIUM 100 MG CAPSULE PO SCH (15:07)
[2018-11-23] MEDS: ASPIRIN EC 81 MG TABLET PO SCH (15:07)
[2018-11-23] MEDS: POTASSIUM CHLORIDE 20 MEQ TABLET PO SCH (15:07)
[2018-11-23] MEDS: PANTOPRAZOLE 40 MG TABLET PO SCH (15:08)
[2018-11-23] MEDS: ENOXAPARIN 40 MG/0.4 ML SYRINGE SUBCUT SCH ×2 (15:08→15:10)
[2018-11-23 17:01] VITALS: BP 153/66
[2018-11-24 13:41] LABS: Smooth Muscle Antibody Negative (Negative)
== END 2018-11-23 18:13 | disposition home or self-care (01) | DRG 392 ==
LOC: N.ED 07:40 → N.EDINP 10:58 → N.2E 12:57
PROVIDERS: ADMIT Family Medicine; ATTEND Family Medicine

== ENCOUNTER 2020-12-10 10:40 | Inpatient (IN) ==
[2020-12-10] MEDS ORDERED: SODIUM CHLORIDE 0.9% 1,000 ML IV STA (11:19)
[2020-12-10 11:31] LABS: Basophils % 0.2 % (0.0-0.8); Eosinophils # 0.2 10*3/uL (0.0-0.87); Eosinophils % 1.4 % (0.00-10.9); Hematocrit 35.9 VOL% (35.7-47.0); Hemoglobin 11.8 GM/DL (12.0-16.0); Immature Granulocytes % 0.4 %; Immature Granulocytes Absolute 0.05 #; Lymphocytes # 1.9 10*3/uL (1.4-4.0); Mean Corpuscular HGB Conc 32.9 GM/DL (32-36); Mean Platelet Volume 9.3 FL (9.6-12.0); Monocytes % 6.7 % (1.7-12.7); Neutrophils % 76.3 % (38.7-73.9); Platelet Count 313 T/CUMM (130-400); Red Blood Count 3.86 MC/CUMM (3.8-5.5); Red Cell Distribution Width 13.4 % (9.3-17.3); White Blood Count 12.4 T/CUMM (4-12)
[2020-12-10 11:44] LABS: PT Patient Result 10.9 SECS (10.5-12.0); Partial Thromboplastin Time 26.4 SECS (23.9-33.8)
[2020-12-10 11:48] LABS: Albumin 3.6 G/DL (3.4-5.0); Bilirubin,Total 0.7 MG/DL (0.2-1.0); Calcium 8.8 MG/DL (8.5-10.1); Osmolality,Calculated 274.5 MOS/KG (273-304); Potassium 3.7 MMOL/L (3.5-5.1); Total Protein 7.8 G/DL (6.4-8.2)
[2020-12-10] MEDS ORDERED: LEVOFLOXACIN INJ 500 MG/100 ML PREMIX IV STA (13:00)
[2020-12-10] MEDS ORDERED: MORPHINE 4 MG/1 ML VIAL IV PRN (13:04)
[2020-12-10] MEDS ORDERED: ACETAMINOPHEN 325 MG TABLET PO PRN (13:04)
[2020-12-10] MEDS ORDERED: ONDANSETRON 4 MG/2 ML VIAL IV PRN (13:04)
[2020-12-10] MEDS ORDERED: BACITRACIN OINT 0.9 GM PACK TOP ONE ×2 (13:58)
[2020-12-10] MEDS: SODIUM CHLORIDE 0.9% 1,000 ML IV SCH ×2 (14:02→22:09)
[2020-12-10] MEDS: metroNIDAZOLE INJ 500 MG/100 ML PREMIX IV SCH ×2 (15:18→22:18)
[2020-12-10] MEDS: DOCUSATE SODIUM 100 MG CAPSULE PO SCH (21:13)
[2020-12-10] MEDS: BACITRACIN/POLYMYXIN OINT 14.17 GM TUBE TOP SCH (21:13)
[2020-12-11] MEDS: SODIUM CHLORIDE 0.9% 1,000 ML IV SCH ×2 (00:30→16:37)
[2020-12-11 04:11] LABS: Basophils % 0.3 % (0.0-0.8); Eosinophils # 0.2 10*3/uL (0.0-0.87); Eosinophils % 1.9 % (0.00-10.9); Hematocrit 30.1 VOL% (35.7-47.0); Immature Granulocytes % 0.3 %; Immature Granulocytes Absolute 0.03 #; Lymphocytes # 1.4 10*3/uL (1.4-4.0); Mean Corpuscular HGB Conc 33.2 GM/DL (32-36); Mean Corpuscular Volume 92.3 FL (87-102); Mean Platelet Volume 9.2 FL (9.6-12.0); Neutrophils % 74.5 % (38.7-73.9); Platelet Count 254 T/CUMM (130-400); Red Blood Count 3.26 MC/CUMM (3.8-5.5); Red Cell Distribution Width 13.5 % (9.3-17.3); White Blood Count 8.9 T/CUMM (4-12)
[2020-12-11] MEDS: metroNIDAZOLE INJ 500 MG/100 ML PREMIX IV SCH ×2 (06:30→16:37)
[2020-12-11 08:07] LABS: Calcium 7.3 MG/DL (8.5-10.1); Potassium 3.5 MMOL/L (3.5-5.1)
[2020-12-11] MEDS ORDERED: NITROGLYCERIN SL 0.4 MG TABLET SL PRN (08:52)
[2020-12-11] MEDS: PANTOPRAZOLE 40 MG TABLET PO SCH (09:41)
[2020-12-11] MEDS: METOPROLOL SUCCINATE XL 25 MG TABLET PO SCH (09:42)
[2020-12-11] MEDS: DOCUSATE SODIUM 100 MG CAPSULE PO SCH (09:42)
[2020-12-11] MEDS: RANOLAZINE 500 MG TABLET PO SCH ×2 (09:42→22:33)
[2020-12-11] MEDS: POTASSIUM CHLORIDE 20 MEQ TABLET PO SCH (09:43)
[2020-12-11] MEDS: BACITRACIN/POLYMYXIN OINT 14.17 GM TUBE TOP SCH (10:21)
[2020-12-11] MEDS: BENZONATATE 100 MG CAPSULE PO SCH ×2 (10:21→16:20)
[2020-12-11] MEDS ORDERED: LEVOFLOXACIN INJ 500 MG/100 ML PREMIX IV SCH (12:00)
[2020-12-11] MEDS: ATORVASTATIN 40 MG TABLET PO SCH (12:53)
[2020-12-11] MEDS: amLODIPine 5 MG TABLET PO SCH (12:53)
[2020-12-11] MEDS ORDERED: POLYETHYLENE GLYCOL POWDER 255 GM BOTTLE PO ONE (18:00)
[2020-12-12] MEDS: DOCUSATE SODIUM 100 MG CAPSULE PO SCH ×2 (00:40→15:05)
[2020-12-12] MEDS: BENZONATATE 100 MG CAPSULE PO SCH ×3 (00:40→16:25)
[2020-12-12] MEDS: BACITRACIN/POLYMYXIN OINT 14.17 GM TUBE TOP SCH ×2 (00:40→15:05)
[2020-12-12] MEDS: metroNIDAZOLE INJ 500 MG/100 ML PREMIX IV SCH ×3 (01:26→16:25)
[2020-12-12 05:52] LABS: PT Patient Result 11.4 SECS (10.5-12.0)
[2020-12-12 06:00] LABS: Basophils % 0.4 % (0.0-0.8); Eosinophils # 0.1 10*3/uL (0.0-0.87); Eosinophils % 1.5 % (0.00-10.9); Hematocrit 31.9 VOL% (35.7-47.0); Hemoglobin 10.6 GM/DL (12.0-16.0); Immature Granulocytes % 1.1 %; Immature Granulocytes Absolute 0.09 #; Lymphocytes # 1.7 10*3/uL (1.4-4.0); Lymphocytes % 21.2 % (21.3-54.2); Mean Corpuscular HGB Conc 33.2 GM/DL (32-36); Mean Platelet Volume 9.5 FL (9.6-12.0); Monocytes % 8.7 % (1.7-12.7); Neutrophils % 67.1 % (38.7-73.9); Platelet Count 270 T/CUMM (130-400); Red Blood Count 3.43 MC/CUMM (3.8-5.5); Red Cell Distribution Width 13.4 % (9.3-17.3); White Blood Count 7.9 T/CUMM (4-12)
[2020-12-12 06:33] LABS: Calcium 7.7 MG/DL (8.5-10.1); Potassium 4.3 MMOL/L (3.5-5.1)
[2020-12-12] MEDS ORDERED: LACTATED RINGERS 1,000 ML IV SCH (08:00)
[2020-12-12] MEDS ORDERED: LIDOCAINE 2% 5 ML VIAL ONE (13:34)
[2020-12-12] MEDS ORDERED: propofoL 200 MG/20 ML VIAL IV ONE ×2 (13:34→13:47)
[2020-12-12] MEDS: PANTOPRAZOLE 40 MG TABLET PO SCH (15:05)
[2020-12-12] MEDS: amLODIPine 5 MG TABLET PO SCH (15:05)
[2020-12-12] MEDS: POTASSIUM CHLORIDE 20 MEQ TABLET PO SCH (15:05)
[2020-12-12] MEDS: ATORVASTATIN 40 MG TABLET PO SCH (15:05)
[2020-12-12] MEDS: METOPROLOL SUCCINATE XL 25 MG TABLET PO SCH (15:05)
[2020-12-12] MEDS: RANOLAZINE 500 MG TABLET PO SCH (15:05)
[2020-12-12 16:27] VITALS: BP 131/51
== END 2020-12-12 17:43 | disposition home or self-care (01) | DRG 394 ==
LOC: N.ED 10:40 → N.EDINP 13:04 → N.5E 12-11 07:26
PROVIDERS: ADMIT Family Medicine; ATTEND Family Medicine
PROC: COLONBX (2020-12-12 10:50)